=== PATIENT | male | born 1960 | race Caucasian/White ===

== ENCOUNTER → 2017-09-24 | Outpatient (CLI) | payer BC ==
[2017-09-24 08:32] LABS: Basophils % (A) 1 %; Eosinophils # (A) 0.2 k/uL (0-0.7); Eosinophils % (A) 3 %; HCT 45.3 % (39.0-53.0); HGB 14.4 gm/dL (13.0-17.5); Lymphocytes # (A) 1.6 k/uL (1.0-4.8); Lymphocytes % (A) 27 %; MCH 28.8 pg (25.0-35.0); MCHC 31.9 g/dL (31.0-37.0); MCV 90.4 fL (80.0-100.0); Mean Platelet Volume 7.3; Monocytes # (A) 0.5 k/uL (0-1.0); Monocytes % (A) 8 %; Neutrophils # (A) 3.6 k/uL (1.3-7.7); Neutrophils % (A) 60 %; Platelet Count 283 k/uL (150-450); RBC 5.01 m/uL (4.30-5.90); RDW 13.9 % (11.5-15.5)
[2017-09-24 09:03] LABS: ALT 36 U/L (21-72); AST 23 U/L (17-59); Albumin 3.8 g/dL (3.5-5.0); Alkaline Phosphatase 91 U/L (38-126); Anion Gap 11 mmol/L; Blood Urea Nitrogen 17 mg/dL (9-20); Calcium 9.5 mg/dL (8.4-10.2); Carbon Dioxide 29 mmol/L (22-30); Chloride 103 mmol/L (98-107); Cholesterol 219 mg/dL (<200); Glucose 106 mg/dL (74-99); HDL Cholesterol 52 mg/dL (40-60); LDL Cholesterol,Calculated 150 mg/dL (0-99); Potassium 5.3 mmol/L (3.5-5.1); Sodium 143 mmol/L (137-145); Total Bilirubin 0.7 mg/dL (0.2-1.3); Total Protein 6.6 g/dL (6.3-8.2); Triglycerides 85 mg/dL (<150); Uric Acid 5.2 mg/dL (3.5-8.5)
== END | disposition home or self-care (01) ==
LOC: LABWHC1 08:02
PROVIDERS: ATTEND Family Medicine
DX: Z00.01 Encounter for general adult medical examination with abnormal findings (principal); K90.9 Intestinal malabsorption, unspecified; M10.9 Gout, unspecified; I10 Essential (primary) hypertension
CPT/HCPCS: 36415; 80053; 80061; 82306; 84550; 85025

== ENCOUNTER → 2018-05-14 | Outpatient (CLI) | payer BC ==
[2018-05-14 16:30] VITALS: BP 131/80; PULSE 71; RESP 16; TEMP 97.9
[2018-05-14 17:03] VITALS: BMI 42.3
--- NOTE | 2018-05-14 17:17 | P.PN ---
Subjective Progress Note Date: 05/14/18 DATE OF SERVICE: 05/14/2018 CHIEF COMPLAINT: Follow-up gastric bypass. HISTORY OF PRESENT ILLNESS: Vlad Ronquillo is a 57-year-old gentleman who is status post Kris-en-Y gastric [place] [address] Dahl. He is 5 years out. He has regained 60 pounds in 3 years. He is back on blood pressure medications. He had done well the first 2 years. He works at nights. 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 No reports of abdominal pain. He cannot eat brussel sprouts and stir james vegetable. He has history of low testosterone where his levels are within normal limits. His protein intake is over 75 grams daily. He eats fruit daily. His heaviest weight was 391 pounds for his 5 foot frame. His ideal body weight is 178 pounds. Today he comes in weighing 312 pounds from 258 pounds, 2 years ago. He has maintained 79 pound weight loss. His present body mass index has been reduced from 53.9 down to 43.0. PAST MEDICAL HISTORY: 1. Hypotestosteronism. 2. Gastroesophageal reflux disease. 3. Dyslipidemia. 4. Gout. 5. Morbid obesity, BMI 53.9, initial 6. Cleft palate. 7. Obstructive sleep apnea. 8. Tinnitus. PAST SURGICAL HISTORY: 1. Cleft lip palate repair. 2. Sinus surgery. 3. Splenectomy. 4. Partial gastrectomy. 5. Partial liver resection. 6. Antrectomy. 7. Circumcision. 8. Cystoscopy. 9. Nephrolithotripsy. 10. Rotator cuff repair. 11. Biceps tendon repair August 2012. 12. Kris-en-Y gastric bypass. 13. Upper endoscopy. MEDICATIONS: 1. Vitamin A. 2. Multivitamin. 3. Zestoretic 4. Melatonin ALLERGIES: Denies. SOCIAL HISTORY: Lifelong nontobacco user. FAMILY HISTORY: Pertinent for morbid obesity including premature cardiac . REVIEW OF SYSTEMS: CONSTITUTIONAL: Highest weight of 391 pounds. Body mass index was 53.7. HEENT: Wears glasses. Does have history of tinnitus. RESPIRATORY: History of obstructive sleep apnea, now improved. No reports of recent pneumonia. CARDIOVASCULAR: History of dyslipidemia. No has recurrent hypertension. GI: History of gastroesophageal reflux disease, improved since his weight loss. No reports of diarrhea or constipation. MUSCULOSKELETAL: History of osteoarthritis now improved with weight loss. History of gout. NEURO: No reports of stroke or seizure disorders. PSYCH: No reports of depression or suicidal ideation. HEMATOLOGIC: Denies any easy bruising or bleeding. SKIN: No rash or skin cancer. PHYSICAL EXAM: VITAL SIGNS: 5 foot , 312 pounds. Vital Signs Temp 97.9 F 05/14/18 16:28 Pulse 71 05/14/18 16:28 Resp 16 05/14/18 16:28 BP 131/80 05/14/18 16:28 Pulse Ox GENERAL: Well-developed male in no acute distress. HEENT: No sclerae icterus. Extraocular movements grossly intact. Moist buccal mucosa. NECK: Supple without lymphadenopathy. CHEST: Nonlabored respirations. Equal bilateral excursions. CARDIOVASCULAR: Regular rate and rhythm. 2+ radial pulses. ABDOMEN: Soft, nontender, nondistended. No palpable incisional hernias. MUSCULOSKELETAL: No clubbing, cyanosis, or edema. NEURO: No focal or lateralizing signs. PSYCH: Appropriate affect. Alert and oriented to person, place and time. SKIN: Well perfused. Good skin turgor. ASSESSMENT: 1. Morbid obesity due to excess caloric intake. 2. Body mass index reduced from 53.9 to 43.0 3. Status post Kris-en-Y gastric bypass. 4. Dietary surveillance and counseling. 5. Hypertension. 6. Weight regain following bariatric procedure. PLAN: 1. Dietary food journal advised. 2. Two week protein diet advised. 3. Bariatric labs advised 4. Follow up in 1 month. Laboratory Last Values PT 10.0 sec (9.0-12.0) 05/14/18 17:35 INR 1.0 (<1.2) 05/14/18 17:35 APTT 22.3 sec (22.0-30.0) 05/14/18 17:[address] Glu mg/dL 126 05/14/18 17:35 Hemoglobin A1c 6.0 % (4.0-6.0) 05/14/18 17:35 Phosphorus 3.9 mg/dL (2.4-5.1) 05/14/18 17:35 Magnesium 2.1 mg/dL (1.5-2.4) 05/14/18 17:35 Iron 72 ug/dL (65-175) 05/14/18 17:35 TIBC 325 ug/dL (228-460) 05/14/18 17:35 Iron Saturation 22.15 (15.00-50.00) 05/14/18 17:35 Ferritin 60.0 ng/mL (22.0-322.0) 05/14/18 17:35 Prealbumin 27.0 mg/dL (18.0-42.0) 05/14/18 17:35 Triglycerides 116.0 mg/dL (0.0-149.0) 05/14/18 17:35 Cholesterol 195 mg/dL (0-200) 05/14/18 17:35 LDL Cholesterol, Calc 126.8 mg/dL (0.0-131.0) 05/14/18 17:35 VLDL Cholesterol, Calc 23.20 mg/dL (5.00-40.00) 05/14/18 17:35 HDL Cholesterol 45.0 mg/dL (40.0-60.0) 05/14/18 17:35 Cholesterol/HDL Ratio 4.33 05/14/18 17:35 Vitamin A 52 ug/dL (38-106) 05/14/18 17:35 Vitamin B1 66 ug/L (38-122) 05/14/18 17:35 Vitamin B12 2525.0 pg/mL (200.0-944.0) H 05/14/18 17:35 Folate 19.2 ng/mL 05/14/18 17:35 PTH Intact 48.0 pg/mL (14.0-72.0) 05/14/18 17:35 Copper 1262 ug/L (665-1480) 05/14/18 17:35 Selenium 133 mcg/L (63-160) 05/14/18 17:35 Zinc 76 ug/dL (60-130) 05/14/18 17:35 Objective - Vital Signs Vital signs: Vital Signs Temp 97.9 F 05/14/18 16:28 Pulse 71 05/14/18 16:28 Resp 16 05/14/18 16:28 BP 131/80 05/14/18 16:28 Pulse Ox
[2018-05-14 18:26] LABS: Partial Thromboplastin Time 22.3 sec (22.0-30.0)
[2018-05-15 04:15] LABS: LDL Cholesterol,Calculated 126.8 mg/dL (0.0-131.0); Magnesium 2.1 mg/dL (1.5-2.4); Phosphorus 3.9 mg/dL (2.4-5.1); VLDL Calculation 23.2 mg/dL (5.00-40.00)
[2018-05-15 04:21] LABS: Iron Saturation 22.15 (15.00-50.00)
[2018-05-15 04:56] LABS: Folate, Serum 19.2 ng/mL
[2018-05-16 14:53] LABS: Zinc, Serum 76 ug/dL (60-130)
[2018-05-19 05:42] LABS: Vitamin A 52 ug/dL (38-106)
[2018-05-19 05:58] LABS: Vitamin B1 66 ug/L (38-122)
[2018-05-20 15:59] LABS: Selenium 133 mcg/L (63-160)
== END | disposition home or self-care (01) ==
LOC: BARWHC3 15:50
PROVIDERS: ATTEND Surgery Plastic and Reconstructive Surgery
DX: Z48.815 Encounter for surgical aftercare following surgery on the digestive system (principal); E66.01 Morbid (severe) obesity due to excess calories; I10 Essential (primary) hypertension; K21.9 Gastro-esophageal reflux disease without esophagitis; E78.5 Hyperlipidemia, unspecified; E21.1 Secondary hyperparathyroidism, not elsewhere classified; E89.1 Postprocedural hypoinsulinemia; D50.9 Iron deficiency anemia, unspecified; K90.9 Intestinal malabsorption, unspecified; K76.9 Liver disease, unspecified; N19 Unspecified kidney failure; K50.90 Crohn's disease, unspecified, without complications; Z68.41 Body mass index [BMI] 40.0-44.9, adult; Z71.3 Dietary counseling and surveillance; Z90.89 Acquired absence of other organs; Z98.890 Other specified postprocedural states; Z98.84 Bariatric surgery status
CPT/HCPCS: 36415; 80061; 82525; 82607; 82728; 82746; 83036; 83540; 83550; 83735; 83970; 84100; 84134; 84255; 84425; 84590; 84630; 85610; 85730; 99211

== ENCOUNTER 2019-03-26 16:01 | Observation (INO) | payer BC ==
--- NOTE | 2019-03-26 15:47 | CT ---
EXAMINATION TYPE: CT abdomen pelvis w con DATE OF EXAM: 03/26/2019 COMPARISON: 10/26/2013 INDICATION: RLQ pain DLP: 2699.2 mGycm, Automated exposure control for dose reduction was used. CONTRAST: 100 mL of Isovue 300. Study performed with Oral Contrast TECHNIQUE: Axial images were obtained from above the diaphragm to the pubic rami in the axial plane a t 5 mm thick sections. Reconstructed images are reviewed on the computer in the coronal plane. FINDINGS: Limited CT sections are obtained the lung bases. The lung bases are clear. CT ABDOMEN: Liver: Normal Spleen: What appears rudimentary. Correlate with surgical history. Pancreas: Normal Adrenal glands: The adrenal glands are normal. Gallbladder: Normal Kidneys: No masses are evident. No hydronephrosis is present. No cysts are present. Delayed images were obtained through the kidneys, which remain unremarkable. Aorta: Vascular calcification is within the aorta. Inferior vena cava: Normal. CT PELVIS: Loops of bowel within the abdomen and pelvis are normal. There are loops of bowel which are incom pletely distended or lack oral contrast limiting their evaluation. Appendix: There is an appendicolith near the origin of the appendix. The appendix is dilated and has mild periappendiceal inflammatory change. Appendix diameter is 1.5 cm, Normal less than 0.7 cm. Find ings are compatible with acute appendicitis. Report was called to the referring. The time of interpre tation. Urinary bladder: Normal. Genitourinary structures: Prostate is prominent. Osseous structures: No suspicious lytic or sclerotic lesions. IMPRESSIONS: 1. Findings compatible with acute appendicitis.
[2019-03-26] MEDS ORDERED: ONDANSETRON 4 MG/2 ML VIAL IVP STA (16:23)
[2019-03-26] MEDS ORDERED: MORPHINE SULFATE 4 MG/ML SYRINGE IV STA (16:23)
[2019-03-26] MEDS ORDERED: SODIUM CHLORIDE 0.9% 1,000 ML IV STA (16:23)
[2019-03-26] MEDS ORDERED: NALOXONE 0.4 MG/ML 1 ML VIAL IV PRN ×2 (16:33→18:39)
[2019-03-26] MEDS ORDERED: PIPERACILLIN-TAZOBACTAM 3.375 GM in SODIUM CHLORIDE 0.9% 100 ML IVPB STA (16:33)
[2019-03-26] MEDS ORDERED: ONDANSETRON 4 MG/2 ML VIAL IVP PRN (16:33)
[2019-03-26] MEDS ORDERED: MORPHINE SULFATE 4 MG/ML SYRINGE IV PRN (16:33)
[2019-03-26 16:45] LABS: Glucose,Whole Blood 121 mg/dL (75-99)
[2019-03-26 17:13] LABS: ALT 40 U/L (21-72); AST 29 U/L (17-59); African American GFR (CKD) >90 (>60 ml/min/1.73 sqM); Albumin 4.4 g/dL (3.5-5.0); Alkaline Phosphatase 89 U/L (38-126); Anion Gap 12 mmol/L; Blood Urea Nitrogen 12 mg/dL (9-20); Calcium 9.4 mg/dL (8.4-10.2); Carbon Dioxide 26 mmol/L (22-30); Chloride 98 mmol/L (98-107); Glucose 125 mg/dL (74-99); Potassium 4.5 mmol/L (3.5-5.1); Sodium 136 mmol/L (137-145); Total Bilirubin 1.4 mg/dL (0.2-1.3); Total Protein 7.6 g/dL (6.3-8.2)
[2019-03-26] MEDS ORDERED: IV FLUID CONTINUATION 1,000 ML IV ONE (17:18)
[2019-03-26] MEDS ORDERED: HEPARIN SODIUM,PORCINE 5,000 UNIT/ML 1 ML VIAL SQ ONE (17:22)
[2019-03-26 17:23] LABS: Prothrombin Time 10.3 sec (9.0-12.0)
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
[2019-03-26 17:26] LABS: Partial Thromboplastin Time 21.3 sec (22.0-30.0)
[2019-03-26] MEDS ORDERED: ONDANSETRON 4 MG/2 ML VIAL IVP ONE (17:29)
[2019-03-26] MEDS ORDERED: fentaNYL (PF) 50 MCG/ML 2 ML AMP ONE (17:37)
[2019-03-26] MEDS ORDERED: MIDAZOLAM 2 MG/2 ML VIAL ONE (17:37)
[2019-03-26] MEDS ORDERED: LIDOCAINE 1% INJ 10MG/ML (20 ML MDV) ONE (17:37)
[2019-03-26] MEDS ORDERED: PROPOFOL 10 MG/ML 20 ML VIAL IV ONE (17:37)
[2019-03-26] MEDS ORDERED: NEOSTIGMINE 1 MG/ML 10 ML VIAL ONE (17:37)
[2019-03-26] MEDS ORDERED: GLYCOPYRROLATE 0.2 MG/ML 2 ML VIAL ONE (17:37)
[2019-03-26] MEDS ORDERED: ROCURONIUM BROMIDE 10 MG/ML 10 ML VIAL IV ONE (17:37)
[2019-03-26] MEDS ORDERED: SUCCINYLCHOLINE CHLORIDE VIAL 200 MG/10 ML VIAL IV ONE (17:37)
[2019-03-26 17:38] LABS: Basophils # (A) 0.2 k/uL (0-0.2); Basophils % (A) 1 %; Eosinophils # (A) 0.1 k/uL (0-0.7); Eosinophils % (A) 0 %; HCT 43.7 % (39.0-53.0); HGB 14.5 gm/dL (13.0-17.5); Lymphocytes # (A) 1.2 k/uL (1.0-4.8); Lymphocytes % (A) 7 %; MCH 29.9 pg (25.0-35.0); MCHC 33.2 g/dL (31.0-37.0); MCV 90.1 fL (80.0-100.0); Mean Platelet Volume 7.6; Monocytes # (A) 1.6 k/uL (0-1.0); Monocytes % (A) 9 %; Neutrophils % (A) 82 %; Platelet Count 244 k/uL (150-450); RBC 4.85 m/uL (4.30-5.90); RDW 14.1 % (11.5-15.5); WBC 18.2 k/uL (3.8-10.6)
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
[2019-03-26] MEDS ORDERED: BUPIVACAINE (PF) 0.25% 30 ML VIAL SQ ONE ×2 (18:19)
[2019-03-26] MEDS ORDERED: LACTATED RINGERS 1,000 ML IV ONE (18:27)
[2019-03-26] MEDS ORDERED: HYDROcodone/APAP 5-325MG 1 EACH TAB PO PRN (18:39)
--- NOTE | 2019-03-26 18:43 | P.OP ---
Date of Procedure: 03/26/19 Procedure(s) Performed: PREOPERATIVE DIAGNOSIS: Acute appendicitis POSTOPERATIVE DIAGNOSIS: Acute gangrenous appendicitis PROCEDURE: Laparoscopic appendectomy SURGEON: Oleg EBL: Minimal ANESTHESIA: General COMPLICATIONS: None OPERATIVE PROCEDURE: The patient was brought and placed on the operating table in the supine position. The patient was placed under general anesthesia. The abdomen was prepped and draped in the usual sterile fashion. An optical 5 mm trocar was used to enter the abdominal cavity in the left periumbilical location. A small amount of adhesions were seen medial to this which were lysed sharply. An additional 5 mm suprapubic trocar was placed under direct visualization as well as a 12 mm left lower quadrant trocar under direct visualization. The appendix was inspected. It was acutely inflamed with gangrene changes. There is no perforation. The mesoappendix was dissected. The base of the appendix was divided using a linear 45 mm intestinal stapler. The mesentery itself was divided using the LigaSure device. The area was then irrigated. No further purulence or bleeding was seen. The appendix was brought out of the peritoneal cavity through the left lower quadrant trocar site with an Endo Catch bag. The fascia at the 12 mm site was closed using a Alex-Tom 0 Vicryl stitch. The skin at all 3 sites was closed using 4-0 Monocryl sutures. Skin glue was then applied. DISPOSITION: Stable to recovery room
[2019-03-26] MEDS: HYDROmorphone 1 MG/ML 1 ML SYRINGE IVP ONE ×2 (18:58→19:06)
[2019-03-26] MEDS ORDERED: ACETAMINOPHEN IV (For NPO) 1,000 MG in EMPTY BAG 1 BAG IVPB ONE (19:00)
[2019-03-26] MEDS ORDERED: KETOROLAC 30 MG/ML 1 ML VIAL IVP ONE (19:07)
[2019-03-26] MEDS: SODIUM CHLORIDE 0.9% 1,000 ML IV SCH (20:11)
[2019-03-26] MEDS: DOCUSATE 100 MG CAP PO SCH (20:22)
[2019-03-26 22:12] VITALS: RESP 18
[2019-03-26] MEDS: PIPERACILLIN-TAZOBACTAM 3.375 GM in SODIUM CHLORIDE 0.9% 100 ML IVPB SCH (23:37)
[2019-03-26] MEDS: HEPARIN SODIUM,PORCINE 5,000 UNIT/ML 1 ML VIAL SQ SCH (23:37)
[2019-03-27] MEDS: SODIUM CHLORIDE 0.9% 1,000 ML IV SCH (03:47)
[2019-03-27 05:13] LABS: Basophils # (A) 0.1 k/uL (0-0.2); Basophils % (A) 0 %; Eosinophils # (A) 0.1 k/uL (0-0.7); Eosinophils % (A) 1 %; HCT 39.9 % (39.0-53.0); HGB 13.7 gm/dL (13.0-17.5); Lymphocytes # (A) 1.4 k/uL (1.0-4.8); Lymphocytes % (A) 11 %; MCH 30.5 pg (25.0-35.0); MCHC 34.2 g/dL (31.0-37.0); MCV 89.2 fL (80.0-100.0); Mean Platelet Volume 5.9; Monocytes # (A) 0.7 k/uL (0-1.0); Monocytes % (A) 6 %; Neutrophils % (A) 81 %; Platelet Count 289 k/uL (150-450); RBC 4.48 m/uL (4.30-5.90); RDW 13.9 % (11.5-15.5); WBC 12.5 k/uL (3.8-10.6)
[2019-03-27] MEDS: PIPERACILLIN-TAZOBACTAM 3.375 GM in SODIUM CHLORIDE 0.9% 100 ML IVPB SCH (08:07)
[2019-03-27] MEDS: HEPARIN SODIUM,PORCINE 5,000 UNIT/ML 1 ML VIAL SQ SCH (08:07)
[2019-03-27] MEDS: DOCUSATE 100 MG CAP PO SCH (08:07)
[2019-03-27 08:18] VITALS: BP 142/68; PULSE 94; TEMP 99
[2019-03-27] MEDS ORDERED: PANTOPRAZOLE 40 MG/10 ML VIAL IV SCH (09:00)
[2019-03-27] MEDS ORDERED: ACETAMINOPHEN TAB 325 MG TAB PO PRN (10:06)
--- NOTE | 2019-03-27 11:07 | P.DS ---
<Minerva Lay - Last Filed: 03/27/19 11:04> Providers Expected date of discharge: 03/27/19 Hospital Course: 58-year-old male who presented to emergency room with a chief complaint of abdominal pain. Patient was found to have acute appendicitis per CT scan. Patient underwent laparoscopic appendectomy with Dr. Dejesus on 03/26/2019. Patient was found to have gangrenous appendicitis. Patient is doing well postoperatively without any immediate complications. Vital signs are stable. Pain controlled on oral medications. He is stable for discharge home today. Please see EMR for further hospital course details. Discharge diagnosis 1. Abdominal pain 2. Acute gangrenous appendicitis Nurse practitioner note has been reviewed by physician. Signing provider agrees with the documented findings, assessment, and plan of care. Patient Condition at Discharge: Stable Plan - Discharge Summary New Discharge Prescriptions: New Hydrocodone/Acetaminophen [[place] 5-325] 1 tab PO Q6HR PRN 3 Days #12 tab PRN Reason: Pain Levofloxacin [Levaquin] 500 mg PO DAILY #5 tab No Action Aspirin 81 mg PO DAILY L.acidoph,Paracasei, B.lactis [Probiotic] 1 cap PO DAILY Glucosam/Jose-Msm1/C/Brian/Bosw [Rnrdxyabrqs-Nfblozlflzm-NVK Tb] 1 tab PO DAILY Zinc 50 mg PO HS Cholecalciferol [Vitamin D3] 5,000 unit PO DAILY Melatonin 10 mg PO HS Vitamin A Acetate [Vitamin A] 10,000 unit SL DAILY Lisinopril-Hctz 20-12.5 mg [Zestoretic 20-12.5] 1 tab PO DAILY Vitamin B Complex 1 cap PO DAILY Meclizine HCl 12.5 mg PO DAILY PRN PRN Reason: Vertigo Cyanocobalamin [Vitamin B-12] 500 mcg PO DAILY Multivitamins, Thera [Multivitamin (formulary)] 1 tab PO DAILY Testosterone Cypionate [Depo-Testosterone] 200 mg IM Q14D Discharge Medication List Aspirin 81 mg PO DAILY 11/25/13 [History] L.acidoph,Paracasei, B.lactis [Probiotic] 1 cap PO DAILY 09/08/15 [History] Cholecalciferol [Vitamin D3] 5,000 unit PO DAILY 05/19/18 [History] Glucosam/Jose-Msm1/C/Brian/Bosw [Rqnrrephuir-Nbppvrhkqss-MNJ Tb] 1 tab PO DAILY 05/19/18 [History] Lisinopril-Hctz 20-12.5 mg [Zestoretic 20-12.5] 1 tab PO DAILY 05/19/18 [History] Melatonin 10 mg PO HS 05/19/18 [History] Vitamin A Acetate [Vitamin A] 10,000 unit SL DAILY 05/19/18 [History] Zinc 50 mg PO HS 05/19/18 [History] Cyanocobalamin [Vitamin B-12] 500 mcg PO DAILY 03/26/19 [History] Meclizine HCl 12.5 mg PO DAILY PRN 03/26/19 [History] Multivitamins, Thera [Multivitamin (formulary)] 1 tab PO DAILY 03/26/19 [History] Testosterone Cypionate [Depo-Testosterone] 200 mg IM Q14D 03/26/19 [History] Vitamin B Complex 1 cap PO DAILY 03/26/19 [History] Hydrocodone/Acetaminophen [[place] 5-325] 1 tab PO Q6HR PRN 3 Days #12 tab 03/27/19 [Rx] Levofloxacin [Levaquin] 500 mg PO DAILY #5 tab 03/27/19 [Rx] Follow up Appointment(s)/Referral(s): Shree Dejesus MD [Medical Doctor] - 04/15/19 2:40 pm Matias Goodman MD [Primary Care Provider] - 1 Week Activity/Diet/Wound Care/Special Instructions: No driving while taking [place] No lifting over 10 pounds You may shower. No soaking or tub baths Very light activity until you are reevaluated at your follow up appointment with your surgeon <Shree Dejesus - Last Filed: 03/27/19 12:17> Providers Date of admission: 03/26/19 16:33 Attending physician: Shree Dejesus Consults: 03/26/19 18:39 Consult Physician Routine Consulting Provider: Severo Sampson Consult Reason/Comments: Medical management Do you want consulting provider notified?: Yes Primary care physician: Matias Goodman - Discharge Diagnosis(es) (1) Acute appendicitis Status: Acute Hospital Course: As above. Patient discharged this morning prior to my arrival. Follow-up one week.
== END 2019-03-27 10:54 ==
LOC: EC 16:01 → 1SOBS 16:33
PROVIDERS: ADMIT Surgery; ATTEND Surgery
DX: K35.891 Other acute appendicitis without perforation, with gangrene (principal); I10 Essential (primary) hypertension; G47.30 Sleep apnea, unspecified; Z99.89 Dependence on other enabling machines and devices; H91.92 Unspecified hearing loss, left ear; Z87.442 Personal history of urinary calculi; Z79.82 Long term (current) use of aspirin; Z79.890 Hormone replacement therapy; Z79.899 Other long term (current) drug therapy; Z98.84 Bariatric surgery status; Z82.49 Family history of ischemic heart disease and other diseases of the circulatory system
CPT/HCPCS: 44970; 99285; 36415; 86900; 86901; 88304; 80053; 83605; 83690; 85025 ×2; 85610; 85730; 86850; 74177; G0378 ×2; J2543 ×2; J2250; J0330; J2270; J1644 ×2; J2710; J2405; J2001; J3010; J1885; J1170; J2704; C9113; Q9967 ×2

== ENCOUNTER → 2020-03-28 | Outpatient (CLI) | payer BC ==
[2020-03-28 17:01] LABS: Basophils % (A) 1 %; Eosinophils # (A) 0.1 k/uL (0-0.7); Eosinophils % (A) 1 %; HCT 51.7 % (39.0-53.0); HGB 16.3 gm/dL (13.0-17.5); Lymphocytes # (A) 2.1 k/uL (1.0-4.8); Lymphocytes % (A) 27 %; MCH 27.9 pg (25.0-35.0); MCHC 31.6 g/dL (31.0-37.0); MCV 88.2 fL (80.0-100.0); Mean Platelet Volume 7.2; Monocytes # (A) 0.7 k/uL (0-1.0); Monocytes % (A) 9 %; Neutrophils # (A) 4.7 k/uL (1.3-7.7); Neutrophils % (A) 60 %; Platelet Count 269 k/uL (150-450); RBC 5.86 m/uL (4.30-5.90); RDW 15.3 % (11.5-15.5); WBC 7.7 k/uL (3.8-10.6)
[2020-03-29 00:13] LABS: % Iron Saturation 21.11 (15.00-50.00); African American GFR (CKD) 84.7 (60.0-200.0); Albumin 4.5 g/dL (3.80-4.90); Albumin/Globulin Ratio 1.96 (1.60-3.17); BUN/Creat Ratio 16.36 Ratio (12.00-20.00); C Reactive Protein, High Sens 2.18 mg/L (0.000-3.000); Calcium 9.2 mg/dL (8.7-10.3); Chol/HDL Ratio 3.42; Globulin 2.3 g/dL (1.6-3.3); LDL Cholesterol,Calculated 114.2 mg/dL (0.0-131.0); Magnesium 2.1 mg/dL (1.5-2.4); Non-African American GFR(CKD) 73.1 (60.0-200.0); Potassium 4.4 mmol/L (3.5-5.5); Total Bilirubin 0.9 mg/dL (0.3-1.2); Total Protein 6.8 g/dL (6.2-8.2); VLDL Calculation 11.8 mg/dL (5.00-40.00)
[2020-03-29 03:01] LABS: Folate, Serum 23.2 ng/mL
[2020-03-31 14:40] LABS: Albumin, LC/MS/MS 4.2 g/dL (3.6-5.1); Testosterone, Free, LC/MS/MS 49.1 pg/mL (46.0-224.0)
== END | disposition home or self-care (01) ==
LOC: LABWHC1 16:16
PROVIDERS: ATTEND Family Medicine
DX: Z13.220 Encounter for screening for lipoid disorders (principal); I10 Essential (primary) hypertension; E29.1 Testicular hypofunction; Z94.84 Stem cells transplant status
CPT/HCPCS: 36415; 80053; 80061; 82040; 82306; 82525; 82607; 82728; 82746; 83540; 83550; 83735; 84255; 84270; 84403; 84425; 84590; 84630; 85025; 86141

== ENCOUNTER → 2020-09-21 | Outpatient (CLI) | payer BC ==
[2020-09-21 16:21] VITALS: BP 153/71; PULSE 77; RESP 18; TEMP 98.3; BMI 38.1
--- NOTE | 2020-09-21 16:45 | P.PN ---
Subjective Progress Note Date: 09/21/20 DATE OF SERVICE: 09/21/2020 CHIEF COMPLAINT: Follow-up gastric bypass HISTORY OF PRESENT ILLNESS: Vlad Ronquillo is a 59-year-old gentleman who is status post Kris-en-Y gastric [place] [address] Dahl. He is 8 years out. He reports moderate weight regain where he went from 227 pounds up to 321 pounds in the last 3-4 years. He reports low testosterone level. He is now being treated with testosterone supplement and is now losing weight. He does report gastroesophageal reflux disease. He presents in consultation for management of his gastric bypass. His highest weight was 391 pounds for his 5 foot frame. His ideal body weight is 178 pounds. Today he comes in weighing 280 pounds from 312 pounds, 3 years ago. His lifetime weight loss is reduced from 164 pounds down to 111 pounds. His lifetime percent excess weight loss is 52%. His present body mass index has been reduced from 53.9 down to 38.6. PAST MEDICAL HISTORY: 1. Hypotestosteronism. 2. Gastroesophageal reflux disease. 3. Dyslipidemia. 4. Gout. 5. Morbid obesity, BMI 53.9, initial 6. Cleft palate. 7. Obstructive sleep apnea. 8. Tinnitus. PAST SURGICAL HISTORY: 1. Cleft lip palate repair. 2. Sinus surgery. 3. Splenectomy. 4. Partial gastrectomy. 5. Partial liver resection. 6. Antrectomy. 7. Circumcision. 8. Cystoscopy. 9. Nephrolithotripsy. 10. Rotator cuff repair. 11. Biceps tendon repair August 2012. 12. Kris-en-Y gastric bypass. 13. Upper endoscopy. MEDICATIONS: Home Medications Medication Instructions Recorded Confirmed Aspirin 81 mg PO DAILY 11/25/13 10/20/20 L.acidoph,Paracasei, B.lactis 1 cap PO DAILY 09/08/15 10/20/20 [Probiotic] Cholecalciferol [Vitamin D3] 4,000 unit PO DAILY 05/19/18 10/20/20 Glucosam/Jose-Msm1/C/Brian/Bosw 1 tab PO DAILY 05/19/18 10/20/20 [Wkdarrpkrzl-Gponddtxyqo-HEI Tb] Lisinopril-Hctz 20-12.5 mg 1 tab PO DAILY 05/19/18 10/20/20 [Zestoretic 20-12.5] Melatonin 10 mg PO HS 05/19/18 10/20/20 Zinc 50 mg PO HS 05/19/18 10/20/20 Cyanocobalamin [Vitamin B-12] 500 mcg PO DAILY 03/26/19 10/20/20 Testosterone Cypionate 150 mg IM Q14D 03/26/19 10/20/20 [Depo-Testosterone] Vitamin B Complex 1 cap PO DAILY 03/26/19 10/20/20 Krill Oil 500 mg PO DAILY 09/21/20 10/20/20 Magnesium Citrate 250 mg PO DAILY 09/21/20 10/20/20 Mv-Min/Folic/Vit K/Lut/Vmfx996 1 each PO DAILY 09/21/20 10/20/20 [Alive Women's 50 Plus Tablet] Naproxen Sodium [Aleve] 220 mg PO DAILY 09/21/20 10/20/20 Turmeric Root Extract [Turmeric] 500 mg PO DAILY 09/21/20 10/20/20 ALLERGIES: Denies. SOCIAL HISTORY: Lifelong nontobacco user. FAMILY HISTORY: Pertinent for morbid obesity including premature cardiac . REVIEW OF SYSTEMS: CONSTITUTIONAL: Highest weight of 391 pounds. Body mass index was 53.9. [place] body weight for height 5 foot 11.5 is 178 pounds. HEENT: Wears glasses. Does have history of tinnitus. RESPIRATORY: History of obstructive sleep apnea. No reports of recent pneumonia. CARDIOVASCULAR: History of dyslipidemia. Has hypertensive heart disease. GI: History of gastroesophageal reflux disease, improved since his weight loss. No reports of diarrhea or constipation. MUSCULOSKELETAL: History of osteoarthritis now improved with weight loss. History of gout. NEURO: No reports of stroke or seizure disorders. PSYCH: No reports of depression or suicidal ideation. HEMATOLOGIC: Denies any easy bruising or bleeding. SKIN: No rash or skin cancer. ENDOCRINE: Denies diabetes. Denies hypothyroidism. Has a low testosterone level. PHYSICAL EXAM: VITAL SIGNS: 5 foot , 312 pounds. Vital Signs Temp 98.3 F 09/21/20 16:11 Pulse 77 09/21/20 16:11 Resp 18 09/21/20 16:11 BP 153/71 09/21/20 16:11 Pulse Ox GENERAL: Well-developed male in no acute distress. HEENT: No sclerae icterus. Extraocular movements grossly intact. Moist buccal mucosa. NECK: Supple without lymphadenopathy. CHEST: Nonlabored respirations. Equal bilateral excursions. CARDIOVASCULAR: Regular rate and rhythm. 2+ radial pulses. ABDOMEN: Soft, nontender, nondistended. No palpable incisional hernias. MUSCULOSKELETAL: No clubbing, cyanosis, or edema. NEURO: No focal or lateralizing signs. PSYCH: Appropriate affect. Alert and oriented to person, place and time. SKIN: Well perfused. Good skin turgor. ASSESSMENT: 1. Morbid obesity due to excess caloric intake. 2. Body mass index reduced from 53.9 to 38.1 3. Status post Kris-en-Y gastric bypass. 4. Dietary surveillance and counseling. 5. Hypertensive heart disease 6. Weight regain following bariatric procedure. 7. Low testosterone level 8. Gastroesophageal reflux disease PLAN: 1. Recommend bariatric labs. 2. He reports more prominent gastroesophageal reflux disease and recommend esophagram. 3. Also recommend upper endoscopy for new reports of gastroesophageal reflux disease. Objective - Vital Signs Vital signs: Vital Signs Temp 98.3 F 09/21/20 16:11 Pulse 77 09/21/20 16:11 Resp 18 09/21/20 16:11 BP 153/71 09/21/20 16:11 Pulse Ox Intake & Output 09/20/20 09/21/20 09/21/20 18:59 06:59 18:59 Weight 127.459 kg
== END ==
LOC: BARWHC3 16:01
PROVIDERS: ATTEND Surgery Plastic and Reconstructive Surgery
DX: E66.01 Morbid (severe) obesity due to excess calories (principal); I11.9 Hypertensive heart disease without heart failure; K21.9 Gastro-esophageal reflux disease without esophagitis; E29.1 Testicular hypofunction; Z71.3 Dietary counseling and surveillance; Z68.38 Body mass index [BMI] 38.0-38.9, adult; Z98.84 Bariatric surgery status; Z79.899 Other long term (current) drug therapy
CPT/HCPCS: 99211

== ENCOUNTER → 2020-09-23 | Outpatient (CLI) | payer BC ==
[2020-09-23 10:54] LABS: HCT 49.9 % (39.6-50.0); HGB 16.5 g/dL (13.0-17.0); MCH 28.3 pg (27.0-32.0); MCHC 33.1 g/dL (32.0-37.0); MCV 85.4 fL (80.0-97.0); Mean Platelet Volume 10.3 fL (9.5-12.2); Platelet Count 255 X 10*3/uL (140-440); RBC 5.84 X 10*6/uL (4.40-5.60); RDW 17.9 % (11.5-14.5); WBC 6.77 X 10*3/uL (4.50-10.00)
[2020-09-23 14:20] LABS: Ferritin 25.5 ng/mL (22.0-322.0)
[2020-09-23 14:21] LABS: % Iron Saturation 22.97 (15.00-50.00); African American GFR (CKD) 76.3 (60.0-200.0); Albumin 4.4 g/dL (3.80-4.90); Albumin/Globulin Ratio 2.1 (1.60-3.17); Anion Gap 8.4 mmol/L (4.00-12.00); BUN/Creat Ratio 13.33 Ratio (12.00-20.00); Calcium 9.3 mg/dL (8.7-10.3); Carbon Dioxide 29.6 mmol/L (21.6-31.8); Chol/HDL Ratio 4.2; Globulin 2.1 g/dL (1.6-3.3); LDL Cholesterol,Calculated 128.2 mg/dL (0.0-131.0); Magnesium 2.1 mg/dL (1.5-2.4); Non-African American GFR(CKD) 65.8 (60.0-200.0); Phosphorus 2.9 mg/dL (2.4-5.1); Potassium 4.8 mmol/L (3.5-5.5); Total Bilirubin 1.3 mg/dL (0.2-1.2); Total Protein 6.5 g/dL (6.2-8.2); VLDL Calculation 12.8 mg/dL (5.00-40.00)
[2020-09-23 15:20] LABS: Folate, Serum 23.6 ng/mL
[2020-09-23 16:28] LABS: Hemoglobin A1C 5.6 % (4.0-6.0)
[2020-09-24 01:11] LABS: INR 0.96 (0.90-1.11); Partial Thromboplastin Time 25.6 sec (23.5-31.0); Prothrombin Time 10.5 sec (9.9-11.9)
== END | disposition home or self-care (01) ==
LOC: LABWHC1 07:00
PROVIDERS: ATTEND Surgery Plastic and Reconstructive Surgery
DX: E66.01 Morbid (severe) obesity due to excess calories (principal); K90.89 Other intestinal malabsorption; D50.8 Other iron deficiency anemias; E55.9 Vitamin D deficiency, unspecified; N19 Unspecified kidney failure; K50.90 Crohn's disease, unspecified, without complications
CPT/HCPCS: 36415; 80053; 80061; 82306; 82525; 82607; 82728; 82746; 83036; 83540; 83550; 83735; 83970; 84100; 84134; 84255; 84425; 84443; 84590; 84630; 85027; 85610; 85730

== ENCOUNTER 2020-10-24 07:00 | Day surgery (SDC) | payer BC ==
[~2020-10-24 07:00] MED LIST: LACTATED RINGERS 1,000 ML IV SCH; LIDOCAINE 1% (10MG/ML) FOR IV START INTRADERMA PRN
[2020-10-24 07:39] VITALS: RESP 16; TEMP 97.8
--- NOTE | 2020-10-24 07:42 | P.GSHP ---
History of Present Illness H&P Date: 10/24/20 CHIEF COMPLAINT: GERD HISTORY OF PRESENT ILLNESS: The patient is a 59-year-old male who presents reports gastroesophageal reflux disease. Upper endoscopy was offered for further evaluation and management. PAST MEDICAL HISTORY: Please see list. PAST SURGICAL HISTORY: Please see list. MEDICATIONS: Please see list. ALLERGIES: Please see list. SOCIAL HISTORY: No illicit drug use FAMILY HISTORY: No reports of Crohn disease or ulcerative colitis. REVIEW OF ORGAN SYSTEMS: CONSTITUTIONAL: No reports of fevers or chills. GI: Denies any blood in stools or constipation. PHYSICAL EXAM: VITAL SIGNS: Stable GENERAL: Well-developed and pleasant in no acute distress. HEENT: No scleral icterus. Extraocular movements grossly intact. Moist buccal mucosa. NECK: Supple without lymphadenopathy. CHEST: Unlabored respirations. Equal bilateral excursions. CARDIOVASCULAR: Regular rate and rhythm. Distal 2+ pulses. ABDOMEN: Soft, nondistended. MUSCULOSKELETAL: No clubbing, cyanosis, or edema. ASSESSMENT: 1. Gastroesophageal reflux disease PLAN: 1. Recommend proceeding with an upper endoscopy Past Medical History Past Medical History: Hypertension Additional Past Medical History / Comment(s): Ringing in Lt ear some loss of hearing, liver injury in 1979. Mederna COVID vaccine #1 - Jul 2020, #02 Aug 2020. History of Any Multi-Drug Resistant Organisms: None Reported Past Surgical History: Bariatric Surgery, Orthopedic Surgery Additional Past Surgical History / Comment(s): Cleft Pallet Repair, Sinus Surgery. Spleen, part of stomach, liver and intestines removed. Circumcision and Cystoscopy had done also. Kidney stones removed x3. Rotator cuff and bicep tendon clipped August 2012, RYGB 06/09/2013. 8 inch piece of wood in left abdomen removed during childhood. carpal tunnel sx 1995. EGD Past Anesthesia/Blood Transfusion Reactions: No Reported Reaction Smoking Status: Never smoker - Past Family History Father Family Medical History: Myocardial Infarction (MT) Additional Family Medical History / Comment(s): [place] in the 1960's, from aneurism in his abd. Medications and Allergies Home Medications Medication Instructions Recorded Confirmed Type Aspirin 81 mg PO DAILY 11/25/13 10/20/20 History L.acidoph,Paracasei, B.lactis 1 cap PO DAILY 09/08/15 10/20/20 History [Probiotic] Cholecalciferol [Vitamin D3] 4,000 unit PO DAILY 05/19/18 10/20/20 History Glucosam/Jose-Msm1/C/Brian/Bosw 1 tab PO DAILY 05/19/18 10/20/20 History [Qzhjggjhqcw-Ygzgmyoquzy-WJA Tb] Lisinopril-Hctz 20-12.5 mg 1 tab PO DAILY 05/19/18 10/24/20 History [Zestoretic 20-12.5] Melatonin 10 mg PO HS 05/19/18 10/20/20 History Zinc 50 mg PO HS 05/19/18 10/20/20 History Cyanocobalamin [Vitamin B-12] 500 mcg PO DAILY 03/26/19 10/20/20 History Testosterone Cypionate 150 mg IM Q14D 03/26/19 10/20/20 History [Depo-Testosterone] Vitamin B Complex 1 cap PO DAILY 03/26/19 10/20/20 History Krill Oil 500 mg PO DAILY 09/21/20 10/20/20 History Magnesium Citrate 250 mg PO DAILY 09/21/20 10/20/20 History Mv-Min/Folic/Vit K/Lut/Jttc804 1 each PO DAILY 09/21/20 10/20/20 History [Alive Women's 50 Plus Tablet] Naproxen Sodium [Aleve] 220 mg PO DAILY 09/21/20 10/20/20 History Turmeric Root Extract [Turmeric] 500 mg PO DAILY 09/21/20 10/20/20 History Allergies Allergy/AdvReac Type Severity Reaction Status Date / Time No Known Allergies Allergy Verified 10/24/20 07:29 Surgical - Exam Vital Signs Temp Pulse Resp BP Pulse Ox 97.8 F 66 16 140/67 96 10/24/20 07:37 10/24/20 07:37 10/24/20 07:37 10/24/20 07:37 10/24/20 07:37
[2020-10-24] MEDS ORDERED: MIDAZOLAM 2 MG/2 ML VIAL ONE (08:05)
[2020-10-24] MEDS ORDERED: LIDOCAINE 1% INJ 10MG/ML (20 ML MDV) ONE (08:05)
[2020-10-24] MEDS ORDERED: KETAMINE 10 MG/ML 20 ML VIAL ONE (08:05)
[2020-10-24] MEDS ORDERED: fentaNYL (PF) 50 MCG/ML 2 ML AMP ONE (08:05)
[2020-10-24] MEDS ORDERED: PROPOFOL 10 MG/ML 20 ML VIAL IV ONE (08:05)
[2020-10-24 08:41] VITALS: BP 123/60; PULSE 65
--- NOTE | 2020-10-24 08:47 | P.PCN ---
Date of Procedure: 10/24/20 Description of Procedure: PREOPERATIVE DIAGNOSIS: Dysphagia. Gastroesophageal reflux disease POSTOPERATIVE DIAGNOSIS: Dysphagia. 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 SURGEON: Makenna Ramirez MD ANESTHESIA: MAC. INDICATIONS: The patient is a 59-year-old male who presents with a history of dysphagia, gastroesophageal reflux disease. Benefits and risks of the procedure were described. Informed consent was obtained. DESCRIPTION: The patient was brought into the endoscopy suite and laid in the left lateral decubitus position. After a timeout was confirmed, the procedure was initiated. An Olympus gastroscope was passed along the posterior oropharynx down to the distal esophagus where the squamocolumnar junction was unremarkable. The gastric pouch was entered. A gastrojejunal stricture of 15 mm was found as the adult gastroscope was 9.5 mm in size. A [employer] balloon dilator was placed through the scope. Presence of tertiary contractions consistent with presbyesophagus was found. Final insufflation up to 20 mm was performed with a total of 2 minutes to address esophageal distal stricture and anastomosis. The scope was advanced up to 60 cm from the incisors into the Kris limb. The mucosa of the gastrojejunal anastomosis was intact. Chronic gastrojejunal marginal ulcer was encountered. No full-thickness injury was encountered. The GI tract was desufflated. The patient tolerated the procedure well. FINDINGS: Squamocolumnar junction unremarkable at 40 cm. Stricture of approximately 15 mm encountered. Chronic gastrojejunal ulceration encountered. Successful balloon dilatation to 20 mm. Gastric pouch 7 cm. Tertiary contractions consistent with presbyesophagus RECOMMENDATIONS: Discontinue all NSAIDs Plan - Discharge Summary Discharge Rx Participant: No New Discharge Prescriptions: Continue Aspirin 81 mg PO DAILY L.acidoph,Paracasei, B.lactis [Probiotic] 1 cap PO DAILY Glucosam/Jose-Msm1/C/Brian/Bosw [Cbpmbnbghjl-Mpamksjssie-KCG Tb] 1 tab PO DAILY Zinc 50 mg PO HS Cholecalciferol [Vitamin D3 (25 Mcg = 1000 Iu)] 4,000 unit PO DAILY Melatonin 10 mg PO HS Lisinopril-Hctz 20-12.5 mg [Zestoretic 20-12.5] 1 tab PO DAILY Vitamin B Complex 1 cap PO DAILY Cyanocobalamin [Vitamin B-12] 500 mcg PO DAILY Testosterone Cypionate [Depo-Testosterone] 150 mg IM Q14D Krill Oil 500 mg PO DAILY Magnesium Citrate 250 mg PO DAILY Mv-Min/Folic/Vit K/Lut/Wugr208 [Alive Women's 50 Plus Tablet] 1 each PO DAILY Discontinued Naproxen Sodium [Aleve] 220 mg PO DAILY Turmeric Root Extract [Turmeric] 500 mg PO DAILY Discharge Medication List Aspirin 81 mg PO DAILY 11/25/13 [History] L.acidoph,Paracasei, B.lactis [Probiotic] 1 cap PO DAILY 09/08/15 [History] Cholecalciferol [Vitamin D3 (25 Mcg = 1000 Iu)] 4,000 unit PO DAILY 05/19/18 [History] Glucosam/Jose-Msm1/C/Brian/Bosw [Rqcernmqorz-Vajamqigzuh-BXE Tb] 1 tab PO DAILY 05/19/18 [History] Lisinopril-Hctz 20-12.5 mg [Zestoretic 20-12.5] 1 tab PO DAILY 05/19/18 [History] Melatonin 10 mg PO HS 05/19/18 [History] Zinc 50 mg PO HS 05/19/18 [History] Cyanocobalamin [Vitamin B-12] 500 mcg PO DAILY 03/26/19 [History] Testosterone Cypionate [Depo-Testosterone] 150 mg IM Q14D 03/26/19 [History] Vitamin B Complex 1 cap PO DAILY 03/26/19 [History] Krill Oil 500 mg PO DAILY 09/21/20 [History] Magnesium Citrate 250 mg PO DAILY 09/21/20 [History] Mv-Min/Folic/Vit K/Lut/Jrhl152 [Alive Women's 50 Plus Tablet] 1 each PO DAILY 09/21/20 [History] [facility]Ref[facility] [place] [place] [facility] Patient Instructions/Handouts: *Sur[facility] - (Anesthesia) Endoscopy Discharge Instructions, Peptic Ulcer (DC), Upper Endoscopy (DC), Esophageal Dilation (DC) Activity/Diet/Wound Care/Special Instructions: Discontinue Aleve, NSAIDs. Discontinue tumeric. Diet as tolerated Discharge Disposition: HOME SELF-CARE
== END 2020-10-24 09:05 | disposition home or self-care (01) ==
LOC: ORWHC2ENDO 07:00
PROVIDERS: ATTEND Surgery Plastic and Reconstructive Surgery
DX: K95.89 Other complications of other bariatric procedure (principal); K21.9 Gastro-esophageal reflux disease without esophagitis; I10 Essential (primary) hypertension; H93.11 Tinnitus, right ear; Z98.890 Other specified postprocedural states; Z87.442 Personal history of urinary calculi; Z82.49 Family history of ischemic heart disease and other diseases of the circulatory system; Z79.1 Long term (current) use of non-steroidal anti-inflammatories (NSAID); Z79.82 Long term (current) use of aspirin; Z79.890 Hormone replacement therapy; Z79.899 Other long term (current) drug therapy
CPT/HCPCS: 43245; J2250; J2001; J3010; J2704; C1726

== ENCOUNTER → 2020-10-26 | Outpatient (CLI) | payer BC ==
--- NOTE | 2020-10-26 17:53 | P.PN ---
Subjective Progress Note Date: 10/26/20 DATE OF SERVICE: 10/26/2020 CHIEF COMPLAINT: Follow-up gastric bypass HISTORY OF PRESENT ILLNESS: Vlad Ronquillo is a 59-year-old gentleman who is status post Kris-en-Y gastric bypass in 2012. He is 8 years out. He comes in with epigastric and right upper quadrant abdominal pain. She comes in with e levated liver enzymes. He still has his gallbladder. He reports occasional troubles with swallowing. He completed upper endoscopy. He presents today for management of his abdominal pain. His highest weight was 391 pounds for his 5 foot frame. His ideal body weight is 178 pounds. Today he comes in weighing 282 pounds from 280 pounds, 1 month ago. He has gained 2 pounds in 1 month. His lifetime weight loss is reduced from 164 pounds down to 109 pounds. His lifetime percent excess weight loss is 51%. His present body mass index has been reduced from 53.9 down to 38.9. PAST MEDICAL HISTORY: 1. Hypotestosteronism. 2. Gastroesophageal reflux disease. 3. Dyslipidemia. 4. Gout. 5. Morbid obesity, BMI 53.9, initial 6. Cleft palate. 7. Obstructive sleep apnea. 8. Tinnitus. PAST SURGICAL HISTORY: 1. Cleft lip palate repair. 2. Sinus surgery. 3. Splenectomy. 4. Partial gastrectomy. 5. Partial liver resection. 6. Antrectomy. 7. Circumcision. 8. Cystoscopy. 9. Nephrolithotripsy. 10. Rotator cuff repair. 11. Biceps tendon repair August 2012. 12. Kris-en-Y gastric bypass. 13. Upper endoscopy. MEDICATIONS: Home Medications Medication Instructions Recorded Confirmed Aspirin 81 mg PO DAILY 11/25/13 10/20/20 L.acidoph,Paracasei, B.lactis 1 cap PO DAILY 09/08/15 10/20/20 [Probiotic] Cholecalciferol [Vitamin D3] 4,000 unit PO DAILY 05/19/18 10/20/20 Glucosam/Jose-Msm1/C/Brian/Bosw 1 tab PO DAILY 05/19/18 10/20/20 [Sokdtokugkh-Fpcszejxucm-VGI Tb] Lisinopril-Hctz 20-12.5 mg 1 tab PO DAILY 05/19/18 10/20/20 [Zestoretic 20-12.5] Melatonin 10 mg PO HS 05/19/18 10/20/20 Zinc 50 mg PO HS 05/19/18 10/20/20 Cyanocobalamin [Vitamin B-12] 500 mcg PO DAILY 03/26/19 10/20/20 Testosterone Cypionate 150 mg IM Q14D 03/26/19 10/20/20 [Depo-Testosterone] Vitamin B Complex 1 cap PO DAILY 03/26/19 10/20/20 Krill Oil 500 mg PO DAILY 09/21/20 10/20/20 Magnesium Citrate 250 mg PO DAILY 09/21/20 10/20/20 Mv-Min/Folic/Vit K/Lut/Kvpl988 1 each PO DAILY 09/21/20 10/20/20 [Alive Women's 50 Plus Tablet] Naproxen Sodium [Aleve] 220 mg PO DAILY 09/21/20 10/20/20 Turmeric Root Extract [Turmeric] 500 mg PO DAILY 09/21/20 10/20/20 ALLERGIES: Denies. SOCIAL HISTORY: Lifelong nontobacco user. FAMILY HISTORY: Pertinent for morbid obesity including premature cardiac . REVIEW OF SYSTEMS: CONSTITUTIONAL: Highest weight of 391 pounds. Body mass index was 53.9. [place] body weight for height 5 foot 11.5 is 178 pounds. HEENT: Wears glasses. Does have history of tinnitus. RESPIRATORY: History of obstructive sleep apnea. No reports of recent pneumonia. CARDIOVASCULAR: History of dyslipidemia. Has hypertensive heart disease. GI: History of gastroesophageal reflux disease, improved since his weight loss. No reports of diarrhea or constipation. MUSCULOSKELETAL: History of osteoarthritis now improved with weight loss. History of gout. NEURO: No reports of stroke or seizure disorders. PSYCH: No reports of depression or suicidal ideation. HEMATOLOGIC: Denies any easy bruising or bleeding. SKIN: No rash or skin cancer. ENDOCRINE: Denies diabetes. Denies hypothyroidism. Has a low testosterone level. PHYSICAL EXAM: VITAL SIGNS: 5 foot , 292 pounds, BMI 38.9 Vital Signs Temp 97.3 F L 10/26/20 17:23 Pulse 81 10/26/20 17:23 Resp 18 10/26/20 17:23 BP 151/84 10/26/20 17:23 Pulse Ox GENERAL: Well-developed male in no acute distress. HEENT: No sclerae icterus. Extraocular movements grossly intact. Moist buccal mucosa. NECK: Supple without lymphadenopathy. CHEST: Nonlabored respirations. Equal bilateral excursions. CARDIOVASCULAR: Regular rate and rhythm. 2+ radial pulses. ABDOMEN: Soft, nontender, nondistended. No palpable incisional hernias. MUSCULOSKELETAL: No clubbing, cyanosis, or edema. NEURO: No focal or lateralizing signs. PSYCH: Appropriate affect. Alert and oriented to person, place and time. SKIN: Well perfused. Good skin turgor. LABS: LFTs elevated. EGD FINDINGS: Squamocolumnar junction unremarkable at 40 cm. Stricture of approximately 15 mm encountered. Chronic gastrojejunal ulceration encountered. Successful balloon dilatation to 20 mm. Gastric pouch 7 cm. Tertiary contractions consistent with presbyesophagus ASSESSMENT: 1. Morbid obesity due to excess caloric intake. 2. Body mass index reduced from 53.9 to 38.9 3. Status post Kris-en-Y gastric bypass. 4. Dietary surveillance and counseling. 5. Hypertensive heart disease 6. Weight regain following bariatric procedure. 7. Low testosterone level 8. Gastroesophageal reflux disease 9. Right upper quadrant abdominal pain. 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 Presbyesophagus PLAN: 1. He comes in with elevated LFTs. Recommend ultrasound of gallbladder. 2. May benefit from EGD with rigid dilation for presbyesophagus. Objective - Vital Signs Vital signs: Vital Signs Temp 97.3 F L 10/26/20 17:23 Pulse 81 10/26/20 17:23 Resp 18 10/26/20 17:23 BP 151/84 10/26/20 17:23 Pulse Ox Intake & Output 10/25/20 10/26/20 10/26/20 18:59 06:59 18:59 Weight 128.367 kg
== END | disposition home or self-care (01) ==
CPT/HCPCS: 99211

== ENCOUNTER → 2020-11-24 | Outpatient (CLI) | payer BC ==
--- NOTE | 2020-11-24 10:56 | US ---
EXAMINATION TYPE: US gallbladder DATE OF EXAM: 11/24/2020 COMPARISON: CT abdomen and pelvis 03/26/2019 CLINICAL HISTORY: R10.11 RUQ, R94.5 Abn Liver function test. EXAM MEASUREMENTS: Liver Length: 15.1 cm Gallbladder Wall: 0.2 cm CBD: 3 mm. Right Kidney: 14.1 x 5.6 x 5.9 cm Extensive overlying bowel gas, large body habitus Pancreas: Obscured by bowel gas Liver: wnl Gallbladder: limited views, cholelithiasis Evidence for sonographic Turcios's sign: No CBD: wnl Right Kidney: No hydronephrosis or masses seen, measures large IMPRESSION: 1. The pancreas is not visualized due to overlying bowel gas and patient's large body habitus. 2. Limited visualization of the gallbladder due to patient's large body habitus. There are gallstones . No positive Turcios's sign, gallbladder wall thickening or pericholecystic fluid is seen. 3. The right kidney measures 14.1 cm in length, which is slightly enlarged. No hydronephrosis or shad owing renal calculi.
== END | disposition home or self-care (01) ==
LOC: RADUSWWP 07:15
PROVIDERS: ATTEND Surgery Plastic and Reconstructive Surgery
DX: K80.20 Calculus of gallbladder without cholecystitis without obstruction (principal)
CPT/HCPCS: 76705

== ENCOUNTER → 2021-08-01 | Outpatient (CLI) | payer BC ==
--- NOTE | 2021-08-01 11:39 | CT ---
EXAMINATION TYPE: CT angio abdomen DATE OF EXAM: 08/01/2021 COMPARISON: 03/26/2021 HISTORY: Abn CTA chest, thoracic aneurysm, family history of dissection CT DLP: 1655.2 mGycm CONTRAST: CTA abdominal aorta with 3-D reconstruction is performed and without and with IV Contrast, patient in jected with 100 mL of Isovue 370. Contrast CTA of the abdominal aorta was performed from the lung bases through the base of the pelvis. 3-D reconstruction imaging obtained at a separate workstation. CONTRAST CT ABDOMEN ABDOMINAL AORTA: No evidence for abdominal aortic aneurysm. No dissection. Iliac vessels are symmet balaji and patent. LIVER/GB- No significant abnormality is seen. PANCREAS- No significant abnormality is seen. SPLEEN- No significant abnormality is seen. ADRENALS- No significant abnormality is seen. KIDNEYS/BLADDER- No significant abnormality is seen. BOWEL- No Significant abnormality GENITAL ORGANS: No gross abnormality seen. LYMPH NODES- No greater than 1cm abdominal or pelvic lymph nodes areappreciated. OSSEOUS STRUCTURES- No significant abnormality is seen. OTHER- No significant abnormality is seen. IMPRESSION- No evidence for abdominal aortic aneurysm.
== END | disposition home or self-care (01) ==
LOC: RADCTMAIN 10:34
PROVIDERS: ATTEND Family Medicine
DX: I71.2 Thoracic aortic aneurysm, without rupture (principal)
CPT/HCPCS: 74175; Q9967

== ENCOUNTER → 2021-08-09 | Outpatient (CLI) | payer BC ==
[2021-08-09 13:43] VITALS: BP 124/85; PULSE 80; TEMP 98; BMI 38.9
--- NOTE | 2021-08-09 14:13 | P.HPBAR ---
Bariatric H&P - History & Physicial H&P Date: 08/09/21 History & Physicial: Visit/CC: bypass follow up Patient initial contact: Initial weight: 176.901 kg Initial weight in pounds: 390.00 Height: 6 ft Initial BMI: 52.9 Last weight: Current weight: 130.181 kg Current weight in pounds: 287.00 Current BMI: 38.9 [place] body weight (based on NIH guidelines): 80.739 kg Excess body weight loss: 48.5% The patient is a 60 year-old M who presents for Bariatric Assessment. DATE OF SERVICE: 08/09/2021 CHIEF COMPLAINT: Follow-up gastric bypass HISTORY OF PRESENT ILLNESS: Vlad Ronquillo is a 59-year-old gentleman who is status post Kris-en-Y gastric bypass in 2012. He is 9 years out. He comes in with chest pain which is new. He has a new aneurysm of the thoracic aorta. He comes in for new atypical chest pain. He takes multiple vitamins. He sees Dr. Goodman. 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 He has troubles with swallowing. He has hoarse voice. His highest weight was 391 pounds for his 5 foot frame. His ideal body weight is 178 pounds. Today he comes in weighing 286 pounds from 282 pounds, 10 months ago. He has gained 4 pounds in 10 months. His lifetime weight loss is r educed from 164 pounds down to 105 pounds. His lifetime percent excess weight loss is 49%. His present body mass index has been reduced from 53.9 down to 38.9. PAST MEDICAL HISTORY: 1. Hypotestosteronism. 2. Gastroesophageal reflux disease. 3. Dyslipidemia. 4. Gout. 5. Morbid obesity, BMI 53.9, initial 6. Cleft palate. 7. Obstructive sleep apnea. 8. Tinnitus. PAST SURGICAL HISTORY: 1. Cleft lip palate repair. 2. Sinus surgery. 3. Splenectomy. 4. Partial gastrectomy. 5. Partial liver resection. 6. Antrectomy. 7. Circumcision. 8. Cystoscopy. 9. Nephrolithotripsy. 10. Rotator cuff repair. 11. Biceps tendon repair August 2012. 12. Kris-en-Y gastric bypass. 13. Upper endoscopy. MEDICATIONS: Home Medications Medication Instructions Recorded Confirmed L.acidoph,Paracasei, B.lactis 1 cap PO DAILY 09/08/15 09/04/21 [Probiotic] Cholecalciferol [Vitamin D3 (25 1,000 unit PO DAILY 05/19/18 09/04/21 Mcg = 1000 Iu)] Glucosam/Jose-Msm1/C/Brian/Bosw 1 tab PO BID 05/19/18 09/04/21 [Kdpimuegkxk-Vzcnmpkusvd-YFD Tb] Lisinopril-Hctz 20-12.5 mg 1 tab PO QAM 05/19/18 09/04/21 [Zestoretic 20-12.5] Melatonin 10 mg PO HS PRN 05/19/18 09/04/21 Zinc 50 mg PO BID 05/19/18 09/04/21 Cyanocobalamin [Vitamin B-12] 500 mcg PO DAILY 03/26/19 09/04/21 Testosterone Cypionate 150 mg IM Q14D 03/26/19 09/04/21 [Depo-Testosterone] Mv-Min/Folic/Vit K/Lut/Cpbj860 1 tab PO DAILY 09/21/20 09/04/21 [Alive Women's 50 Plus Tablet] Magnesium 500 mg PO BID 07/24/21 09/04/21 Super B Complex 1 tab PO BID 07/24/21 09/04/21 amLODIPine [Norvasc] 10 mg PO QAM 07/24/21 09/04/21 Omeprazole 20 mg PO BID 08/22/21 09/04/21 Rosuvastatin [Crestor] 40 mg PO DAILY 08/22/21 09/04/21 Previous Rx's Medication Instructions Recorded Acetaminophen Tab [Tylenol Tab] 1,000 mg PO Q6HR PRN #30 tablet 09/04/21 Amoxic-Pot Clav 875-125Mg 1 tab PO BID #10 tab 09/04/21 [Augmentin 875-125] Simethicone [Gas-X] 125 mg PO AC-TID PRN #20 capsule 09/04/21 Amoxic-Pot Clav 875-125Mg 1 each PO Q12HR #10 tablet 09/06/21 [Augmentin Xr 875-125] Loratadine-Pseudoeph 5-120 mg 1 each PO Q12HR #20 tab 09/06/21 [Claritin-D 12 HR] ALLERGIES: Denies. SOCIAL HISTORY: Lifelong nontobacco user. FAMILY HISTORY: Pertinent for morbid obesity including premature cardiac . REVIEW OF SYSTEMS: CONSTITUTIONAL: Highest weight of 391 pounds. Body mass index was 53.9. [place] body weight for height 5 foot 11.5 is 178 pounds. HEENT: Wears glasses. Does have history of tinnitus. RESPIRATORY: History of obstructive sleep apnea. No reports of recent pneumonia. CARDIOVASCULAR: History of dyslipidemia. Has hypertensive heart disease. GI: History of gastroesophageal reflux disease, improved since his weight loss. No reports of diarrhea or constipation. MUSCULOSKELETAL: History of osteoarthritis now improved with weight loss. History of gout. NEURO: No reports of stroke or seizure disorders. PSYCH: No reports of depression or suicidal ideation. HEMATOLOGIC: Denies any easy bruising or bleeding. SKIN: No rash or skin cancer. ENDOCRINE: Denies diabetes. Denies hypothyroidism. Has a low testosterone l evel. PHYSICAL EXAM: VITAL SIGNS: 5 foot 11, 286 pounds, BMI 38.9 Vital Signs Temp 98 F 08/09/21 13:41 Pulse 80 08/09/21 13:41 Resp BP 124/85 08/09/21 13:41 Pulse Ox GENERAL: Well-developed male in no acute distress. HEENT: No sclerae icterus. Extraocular movements grossly intact. Moist buccal mucosa. NECK: Supple without lymphadenopathy. CHEST: Nonlabored respirations. Equal bilateral excursions. CARDIOVASCULAR: Regular rate and rhythm. 2+ radial pulses. ABDOMEN: Soft, nontender, nondistended. No palpable incisional hernias. MUSCULOSKELETAL: No clubbing, cyanosis, or edema. NEURO: No focal or lateralizing signs. PSYCH: Appropriate affect. Alert and oriented to person, place and time. SKIN: Well perfused. Good skin turgor. STUDIES: Ultrasound of the gallbladder from October 2020 independently reviewed demonstrates gallstones. ASSESSMENT: 1. Morbid obesity due to excess caloric intake. 2. Body mass index reduced from 53.9 to 38.9 3. Status post Kris-en-Y gastric bypass. 4. Dietary surveillance and counseling. 5. Hypertensive heart disease 6. Weight regain following bariatric procedure. 7. Low testosterone level 8. Gastroesophageal reflux disease 9. Right upper quadrant abdominal pain. 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 Presbyesophagus 12. Dysphagia 13. Gallstones PLAN: 1. He has troubles with swallowing. Recommend upper endoscopy. 2. Cardiac clearance letter pending. 3. Recommend cholecystectomy for which he is elevated risk due to recent chest pain and obesity. 4. Recommend bariatric labs. Past Medical History Past Medical History: Hypertension Additional Past Medical History / Comment(s): Ringing in Lt ear some loss of hearing, liver injury in 1979. Mederna COVID vaccine #1 - Jul 2020, #02 Aug 2020. History of Any Multi-Drug Resistant Organisms: None Reported Past Surgical History: Bariatric Surgery, Orthopedic Surgery Additional Past Surgical History / Comment(s): Cleft Pallet Repair, Sinus Surgery. Spleen, part of stomach, liver and intestines removed. Circumcision and Cystoscopy had done also. Kidney stones removed x3. Rotator cuff and bicep t endon clipped August 2012, RYGB 06/09/2013. 8 inch piece of wood in left abdomen removed during childhood. carpal tunnel sx 1995. EGD Past Anesthesia/Blood Transfusion Reactions: No Reported Reaction Past Psychological History: No Psychological Hx Reported Smoking Status: Never smoker Past Alcohol Use History: Rare Past Drug Use History: None Reported - Past Family History Father Family Medical History: Myocardial Infarction ([place]) Additional Family Medical History / Comment(s): [place] in the 1960's, from aneurism in his abd. Surgical - Exam Vital Signs Temp Pulse BP 98 F 80 124/85 08/09/21 13:41 08/09/21 13:41 08/09/21 13:41 Results - Labs 08/09/21 15:34 08/09/21 15:34 Bariatric Checklist Checklist: Plan: Checklist: EGD: 1. Hiatal hernia: 2. H. Pylori: HgbA1c: Vitamin D: Smoking: Never smoker Primary care physician referral: Dr. Goodman Psychiatry clearance: Cardiology clearance: Sleep study: Diet journal: VTE risk score: VTE risk level: Rehab needs at discharge:
[2021-08-09 23:16] LABS: HGB 18.1 g/dL (13.0-17.0); MCH 31.4 pg (27.0-32.0); MCHC 34.2 g/dL (32.0-37.0); MCV 91.9 fL (80.0-97.0); Mean Platelet Volume 10.2 fL (9.5-12.2); NRBC Per 100 WBC 0 /100 WBCS (0.0-0.0); Platelet Count 252 X 10*3/uL (140-440); RBC 5.77 X 10*6/uL (4.40-5.60); RDW 15.1 % (11.5-14.5); WBC 9.35 X 10*3/uL (4.50-10.00)
[2021-08-09 23:44] LABS: Chol/HDL Ratio 4.27 Ratio; LDL Cholesterol,Calculated 114.1 mg/dL (0.0-131.0)
[2021-08-10 01:51] LABS: INR 0.99 (0.90-1.11); Partial Thromboplastin Time 26.8 sec (23.5-31.0); Prothrombin Time 11.2 sec (9.9-11.9)
[2021-08-10 04:17] LABS: % Iron Saturation 19.61 (15.00-50.00); ALT 43 U/L (10-49); AST 30 U/L (14-35); African American GFR (CKD) 64.5 (60.0-200.0); Albumin 4.9 g/dL (3.8-4.9); Albumin/Globulin Ratio 1.45 (1.60-3.17); Alkaline Phosphatase 65 U/L (41-126); BUN/Creat Ratio 11.61 Ratio (12.00-20.00); Blood Urea Nitrogen 15.9 mg/dL (9.0-27.0); Calcium 9.7 mg/dL (8.7-10.3); Carbon Dioxide 16.4 mmol/L (20.0-27.5); Chloride 100 mmol/L (96-109); Ferritin 60.3 ng/mL (22.0-322.0); Globulin 3.4 g/dL (1.6-3.3); Glucose 91 mg/dL (70-110); Iron 82 ug/dL (65-175); Magnesium 2.4 mg/dL (1.5-2.4); Non-African American GFR(CKD) 55.7 (60.0-200.0); Phosphorus 3.4 mg/dL (2.4-5.1); Potassium 4.7 mmol/L (3.5-5.5); Sodium 141 mmol/L (135-145); Total Iron Binding Capacity 417 ug/dL (228-460); Total Protein 8.2 g/dL (6.2-8.2)
[2021-08-10 04:56] LABS: Folate, Serum >20.00 ng/mL (4.40-31.00)
[2021-08-10 12:10] LABS: Zinc, Serum 85 ug/dL (60-130)
[2021-08-11 06:12] LABS: Vit B1(Thiamine) 92 ug/L (38-122)
[2021-08-12 10:44] LABS: Selenium 168 mcg/L (63-160)
[2021-08-15 06:17] LABS: Vitamin A 68 ug/dL (38-106)
== END ==
LOC: BARWHC3 13:03
PROVIDERS: ATTEND Surgery Plastic and Reconstructive Surgery
DX: E66.01 Morbid (severe) obesity due to excess calories (principal); Z68.38 Body mass index [BMI] 38.0-38.9, adult; Z98.84 Bariatric surgery status; Z71.3 Dietary counseling and surveillance; I11.9 Hypertensive heart disease without heart failure; K21.9 Gastro-esophageal reflux disease without esophagitis; R10.11 Right upper quadrant pain; K28.7 Chronic gastrojejunal ulcer without hemorrhage or perforation; R13.10 Dysphagia, unspecified; K80.80 Other cholelithiasis without obstruction; K22.89 Other specified disease of esophagus; E29.1 Testicular hypofunction; E78.5 Hyperlipidemia, unspecified
CPT/HCPCS: 36415; 80053; 80061; 82306; 82525; 82607; 82728; 82746; 83036; 83540; 83550; 83735; 83970; 84100; 84134; 84255; 84425; 84443; 84590; 84630; 85027; 85610; 85730; 99211

== ENCOUNTER → 2021-08-24 | Outpatient (CLI) | payer BC ==
[2021-08-25 14:35] LABS: Coronavirus SARS CoV-2 Not Detected (Not Detected)
== END | disposition home or self-care (01) ==
LOC: LABPAT 07:04
PROVIDERS: ATTEND Surgery Plastic and Reconstructive Surgery
DX: Z01.812 Encounter for preprocedural laboratory examination (principal); Z20.822 Contact with and (suspected) exposure to COVID-19

== ENCOUNTER 2021-08-28 08:35 | Day surgery (SDC) | payer BC ==
[2021-08-24 11:22] VITALS: BMI 39.3
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
[2021-08-28 09:10] VITALS: TEMP 98.8
[2021-08-28] MEDS ORDERED: PROPOFOL 10 MG/ML 20 ML VIAL IV ONE (09:16)
[2021-08-28] MEDS ORDERED: MIDAZOLAM 2 MG/2 ML VIAL ONE (09:16)
[2021-08-28] MEDS ORDERED: fentaNYL (PF) 50 MCG/ML 2 ML AMP ONE (09:16)
[2021-08-28] MEDS ORDERED: LIDOCAINE 1% INJ 10MG/ML (20 ML MDV) ONE (09:16)
[2021-08-28 09:52] VITALS: BP 113/68; PULSE 64; RESP 17
--- NOTE | 2021-08-28 10:23 | P.PCN ---
Date of Procedure: 08/28/21 Description of Procedure: PREOPERATIVE DIAGNOSIS: Atypical chest pain Personal history of gastrojejunal ulcer s/p Kris-en-y gastric bypass. Morbid obesity. POSTOPERATIVE DIAGNOSIS: Atypical chest pain Personal history of gastrojejunal ulcer s/p Kris-en-y gastric bypass. Morbid obesity. Gastrojejunal stricture OPERATION: Esophagogastrojejunoscopy with balloon dilatation from 18 to 20 mm. SURGEON: Makenna Ramirez MD ANESTHESIA: MAC. INDICATIONS: The patient is a 60-year-old male who presents with a history of Seizure. Benefits and risks of the procedure were described. Informed consent was obtained. DESCRIPTION: The patient was brought into the endoscopy suite and laid in the left lateral de cubitus position. After a timeout was confirmed, the procedure was initiated. An Olympus gastroscope was passed along the posterior oropharynx down to the distal esophagus where the squamocolumnar junction was unremarkable. The gastric pouch was entered. A gastrojejunal stricture of 18 mm was found as the adult gastroscope was 9.5 mm in size. A [employer] balloon dilator was placed through the scope. Final insufflation up to 20 mm was performed with a total of 2 minutes. The scope was advanced up to 60 cm from the incisors into the Kris limb. The mucosa of the gastrojejunal anastomosis was intact. Resolved gastrojejunal marginal ulcer was encountered. No full-thickness injury was encountered. The GI tract was desufflated. The patient tolerated the procedure well. FINDINGS: Squamocolumnar junction unremarkable at 42 cm. Stricture of approximately 18 mm encountered. Resolved gastrojejunal ulceration. Successful balloon dilatation to 20 mm. Gastric pouch 8 cm. RECOMMENDATIONS: Continue omeprazole Plan - Discharge Summary Discharge Rx Participant: No New Discharge Prescriptions: Continue L.acidoph,Paracasei, B.lactis [Probiotic] 1 cap PO DAILY Glucosam/Jose-Msm1/C/Brian/Bosw [Zntpfkbyquv-Bhrzagftepu-RJJ Tb] 1 tab PO BID Zinc 50 mg PO BID Cholecalciferol [Vitamin D3 (25 Mcg = 1000 Iu)] 1,000 unit PO DAILY Melatonin 10 mg PO HS PRN PRN Reason: sleep Lisinopril-Hctz 20-12.5 mg [Zestoretic 20-12.5] 1 tab PO QAM Cyanocobalamin [Vitamin B-12] 500 mcg PO DAILY Testosterone Cypionate [Depo-Testosterone] 150 mg IM Q14D Magnesium 500 mg PO BID Super B Complex 1 tab PO BID amLODIPine [Norvasc] 10 mg PO QAM Mv-Min/Folic/Vit K/Lut/Fvqi591 [Alive Women's 50 Plus Tablet] 1 tab PO DAILY Omeprazole 20 mg PO BID Rosuvastatin [Crestor] 40 mg PO DAILY Discharge Medication List L.acidoph,Paracasei, B.lactis [Probiotic] 1 cap PO DAILY 09/08/15 [History] Cholecalciferol [Vitamin D3 (25 Mcg = 1000 Iu)] 1,000 unit PO DAILY 05/19/18 [History] Glucosam/Jose-Msm1/C/Brian/Bosw [Ddhwocfsvox-Ugpczdbncam-UDS Tb] 1 tab PO BID 05/19/18 [History] Lisinopril-Hctz 20-12.5 mg [Zestoretic 20-12.5] 1 tab PO QAM 05/19/18 [History] Melatonin 10 mg PO HS PRN 05/19/18 [History] Zinc 50 mg PO BID 05/19/18 [History] Cyanocobalamin [Vitamin B-12] 500 mcg PO DAILY 03/26/19 [History] Testosterone Cypionate [Depo-Testosterone] 150 mg IM Q14D 03/26/19 [History] Mv-Min/Folic/Vit K/Lut/Jccn076 [Alive Women's 50 Plus Tablet] 1 tab PO DAILY 09/21/20 [History] Magnesium 500 mg PO BID 07/24/21 [History] Super B Complex 1 tab PO BID 07/24/21 [History] amLODIPine [Norvasc] 10 mg PO QAM 07/24/21 [History] Omeprazole 20 mg PO BID 08/22/21 [History] Rosuvastatin [Crestor] 40 mg PO DAILY 08/22/21 [History] Follow [facility]ment[facility]Ref[facility] [place] [facility] Patient Instructions/Handouts: Esophageal Dilation (DC) Discharge Disposition: HOME SELF-CARE
== END 2021-08-28 10:26 | disposition home or self-care (01) ==
LOC: ORWHC2ENDO 08:35
PROVIDERS: ATTEND Surgery Plastic and Reconstructive Surgery
DX: R07.89 Other chest pain (principal); K21.9 Gastro-esophageal reflux disease without esophagitis; I10 Essential (primary) hypertension; E78.5 Hyperlipidemia, unspecified; Z87.442 Personal history of urinary calculi
CPT/HCPCS: 43249; J2250; J2001; J3010; J2704; C1726

== ENCOUNTER 2021-09-04 07:46 | Day surgery (SDC) | payer BC ==
[2021-08-24 12:56] VITALS: BMI 39.3
[~2021-09-04 07:46] MED LIST changes: -LACTATED RINGERS 1,000 ML IV SCH; -LIDOCAINE 1% (10MG/ML) FOR IV START INTRADERMA PRN; +ceFAZolin 3 GM in SODIUM CHLORIDE 0.9% 100 ML IVPB PRN
[2021-09-04] MEDS ORDERED: INDOCYANINE GREEN 25 MG VIAL IV STA (07:47)
[2021-09-04] MEDS ORDERED: GABAPENTIN 300 MG CAP PO PRN (07:47)
[2021-09-04] MEDS ORDERED: HEPARIN SODIUM,PORCINE/PF 5,000 UNIT/0.5 ML SYRINGE SQ PRN (07:47)
[2021-09-04] MEDS ORDERED: TAMSULOSIN 0.4 MG CAP.ER.24H PO STA (07:47)
[2021-09-04] MEDS ORDERED: ACETAMINOPHEN TAB 500 MG TAB PO PRN (07:47)
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
[2021-09-04] MEDS ORDERED: LACTATED RINGERS 1,000 ML IV SCH (08:03)
[2021-09-04] MEDS ORDERED: DEXAMETHASONE SOD PHOSPHATE 4 MG/ML 1 ML VIAL IV ONE (08:03)
[2021-09-04] MEDS ORDERED: ONDANSETRON 4 MG/2 ML VIAL IVP ONE (08:03)
[2021-09-04 08:51] LABS: Glucose,Whole Blood 95 mg/dL (75-99)
[2021-09-04 08:54] LABS: Basophils # (A) 0.1 k/uL (0-0.2); Basophils % (A) 1 %; Eosinophils # (A) 0.1 k/uL (0-0.7); Eosinophils % (A) 2 %; HCT 54.3 % (39.0-53.0); HGB 18.1 gm/dL (13.0-17.5); Lymphocytes # (A) 1.6 k/uL (1.0-4.8); Lymphocytes % (A) 19 %; MCH 32.2 pg (25.0-35.0); MCHC 33.3 g/dL (31.0-37.0); MCV 96.7 fL (80.0-100.0); Mean Platelet Volume 7.8; Monocytes # (A) 0.8 k/uL (0-1.0); Monocytes % (A) 10 %; Neutrophils # (A) 5.7 k/uL (1.3-7.7); Neutrophils % (A) 67 %; Platelet Count 260 k/uL (150-450); RBC 5.61 m/uL (4.30-5.90); WBC 8.4 k/uL (3.8-10.6)
[2021-09-04] MEDS ORDERED: GLYCOPYRROLATE 0.2 MG/ML 2 ML VIAL ONE (09:18)
[2021-09-04] MEDS ORDERED: fentaNYL (PF) 50 MCG/ML 2 ML AMP ONE (09:18)
[2021-09-04] MEDS ORDERED: MIDAZOLAM 2 MG/2 ML VIAL ONE (09:18)
[2021-09-04] MEDS ORDERED: ePHEDrine 50 MG/ML 1 ML VIAL ONE (09:18)
[2021-09-04] MEDS ORDERED: PROPOFOL 10 MG/ML 20 ML VIAL IV ONE (09:18)
[2021-09-04] MEDS ORDERED: INDOCYANINE GREEN 25 MG VIAL IV ONE (09:18)
[2021-09-04] MEDS ORDERED: NEOSTIGMINE 1 MG/ML 10 ML VIAL ONE (09:18)
[2021-09-04] MEDS ORDERED: SUCCINYLCHOLINE CHLORIDE VIAL 200 MG/10 ML VIAL IV ONE (09:18)
[2021-09-04] MEDS ORDERED: ROCURONIUM 10 MG/ML (5 ML VIAL) IV ONE (09:18)
[2021-09-04] MEDS ORDERED: LIDOCAINE 1% INJ 10MG/ML (20 ML MDV) ONE (09:18)
[2021-09-04 09:27] LABS: ALT 30 U/L (4-49); AST 26 U/L (17-59); African American GFR (CKD) >90 (>60 ml/min/1.73 sqM); Albumin 2.8 g/dL (3.5-5.0); Alkaline Phosphatase 35 U/L (38-126); Anion Gap 9 mmol/L; Blood Urea Nitrogen 14 mg/dL (9-20); Calcium 7.8 mg/dL (8.4-10.2); Carbon Dioxide 20 mmol/L (22-30); Chloride 105 mmol/L (98-107); Glucose 78 mg/dL (74-99); Non-African American GFR(CKD) >90 (>60 ml/min/1.73 sqM); Potassium 4.4 mmol/L (3.5-5.1); Sodium 134 mmol/L (137-145); Total Bilirubin 1.1 mg/dL (0.2-1.3); Total Protein 5.3 g/dL (6.3-8.2)
[2021-09-04] MEDS ORDERED: BUPIVACAIN-EPI 0.25%-1:200,000 30 ML VIAL SQ ONE (09:56)
[2021-09-04] MEDS ORDERED: LACTATED RINGERS 1,000 ML IV ONE (11:34)
[2021-09-04 12:01] VITALS: TEMP 97
[2021-09-04] MEDS ORDERED: KETOROLAC 15 MG/ML 1 ML VIAL IVP ONE (12:13)
--- NOTE | 2021-09-04 12:32 | P.OP ---
Date of Procedure: 09/04/21 Description of Procedure: SURGEON: DULCE MARIA WILCOX MD PREOPERATIVE DIAGNOSES: 1. Atypical chest pain with symptomatic gallstones 2. Morbid obesity due to excess calories, BMI 39.3 3. History of gastric bypass 4. Hypertensive heart disease 5. Hypotestosteronism POSTOPERATIVE DIAGNOSES: 1. Atypical chest pain with symptomatic gallstones 2. Morbid obesity due to excess calories, BMI 39.3 3. History of gastric bypass 4. Hypertensive heart disease 5. Hypotestosteronism 6. Diabetes type 2 7. Severe intra-abdominal adhesions due to prior trauma exploratory laparotomy OPERATION: 1. Robotic-assisted da Taqueria Xi laparoscopic lysis of adhesions over 1.5 hours 2. Robotic-assisted da Taqueria Xi laparoscopic cholecystectomy, multiport with FIREFLY ESTIMATED BLOOD LOSS: 10 mL. SPECIMENS REMOVED: Gallbladder. COMPLICATIONS: None. OPERATIVE FINDINGS: 1. Severe intra-abdominal adhesions involving omentum to abdominal wall including small bowel and colon to the abdominal wall requiring over 1.5 hours of extensive lysis of adhesions 2. Gallbladder surrounded by moderately dense adhesions and identified using indocyanine green INDICATIONS: The patient is a 60-year-old male who presents with recent atypical chest pain with findings of symptomatic gallstones. Robotic assisted laparoscopic approach was described. Benefits and risks of the procedure including but not limited to bleeding, infection, injury to the biliary tree was described. Informed consent was obtained. DESCRIPTION OF PROCEDURE: Patient was brought to the operating room, placed in supine position. After general induction, the abdomen had been prepped and draped in standard sterile fashion. The robotic da Taqueria XI system was primed. After a timeout protocol was performed, the patient had been prepped and draped in standard sterile fashion. The patient was injected with indocyanine green. A 5 mm 0 degrees laparoscopic trocar entry was performed along the left upper quadrant. The abdomen insufflated to 15 mmHg pressure which was tolerated well. Diagnostic laparoscopy demonstrated severe abdominal adhesions of the omentum to the abdominal wall as well as the small bowel adherent to the left upper quadrant and transverse colon of the epigastrium. The right side of the lateral abdominal wall was without moderate adhesions. Next, two 8 mm robotic ports were placed along the right upper abdomen. The camera 8-mm port was maintained along the epigastrium. Another 8 mm port was placed along the left upper abdominal wall after exchanging the 5 mm port. Please note that the ports were placed at least 10 to 15 cm away from the target anatomy of the gallbladder. All trochars were placed under direct visualization. The robot was docked along the left lateral abdomen. The patient was repositioned in reverse Trendelenburg position. Using a grasper for arm 3, a grasper for arm 4, including hook cautery for arm 1, the robotic system was docked and primed as described. Instruments were interchanged by the medical receptionist assistant including hook cautery, vessel sealer, Bovie cautery and clip appliers. I had sat at the console. Initial attention was brought to clearance of the omentum to the abdominal wall involving the epigastrium, left upper quadrant and right upper quadrant. Using combination of blunt dissection including vessel sealer, the mid transverse colon was gently dissected free bluntly without colotomy. Access to the right upper quadrant was performed using vessel sealer. Attention was then brought to the gallbladder which was densely embedded in surrounding adhesions including the duodenum and transverse colon. Additional blunt dissection including d issection with a vessel sealer and minimal cautery was performed. Total lysis of adhesions over 1.5 hours was performed and complexity to the case. Next attention was brought to the infundibulum and cystic structures. The infundibulum and cystic duct were dissected free from surrounding tissues. The cystic duct was isolated. FIREFLY was used to identify the cystic artery and cystic structures. A critical view of safety was obtained. Large PLASTIC clips were used throughout the entire case. Using a clip spring clipper, 2 clips were placed at the junction of the infundibulum and cystic duct. The cystic duct was divided between clips. Next, the cystic artery was similarly clipped and cauterized. Electro-Bovie cautery including vessel sealer was used to remove the gallbladder from the hepatic fossa. The gallbladder was decompressed without any spillage of stones. Hemostasis was checked and found to be adequate. The robot was undocked. I re-scrubbed into the case. Using a 10 mm Endo Catch bag via the epigastric incision, the specimen was removed from the abdominal cavity. The hepatic fossa was dried using sponges. All pneumoperitoneum instruments were evacuated from the abdominal cavity. The incisions were reapproximated using 4-0 Monocryl in an interrupted subcuticular fashion. Fascial defects were less than 8 mm in size. Please note along the trocar sites, local anesthetic was placed as a field block prior to insertion of all instruments. Liquid glue was applied to the skin. At the end of the procedure needle, sponge, and instrument count had been verified correct by the surgical brace maker. The patient was transferred to postanesthesia care unit in stable condition. Intraoperative films were shared with the patient's family. Plan - Discharge Summary Discharge Rx Participant: No New Discharge Prescriptions: New Amoxic-Pot Clav 875-125Mg [Augmentin 875-125] 1 tab PO BID #10 tab Simethicone [Gas-X] 125 mg PO AC-TID PRN #20 capsule PRN Reason: Pain Acetaminophen Tab [Tylenol Tab] 1,000 mg PO Q6HR PRN #30 tablet PRN Reason: Pain Continue L.acidoph,Paracasei, B.lactis [Probiotic] 1 cap PO DAILY Glucosam/Jose-Msm1/C/Brian/Bosw [Cbkodfcqxac-Yquvjhlucbd-NHZ Tb] 1 tab PO BID Zinc 50 mg PO BID Cholecalciferol [Vitamin D3 (25 Mcg = 1000 Iu)] 1,000 unit PO DAILY Melatonin 10 mg PO HS PRN PRN Reason: sleep Lisinopril-Hctz 20-12.5 mg [Zestoretic 20-12.5] 1 tab PO QAM Cyanocobalamin [Vitamin B-12] 500 mcg PO DAILY Testosterone Cypionate [Depo-Testosterone] 150 mg IM Q14D Magnesium 500 mg PO BID Super B Complex 1 tab PO BID amLODIPine [Norvasc] 10 mg PO QAM Mv-Min/Folic/Vit K/Lut/Prho636 [Alive Women's 50 Plus Tablet] 1 tab PO DAILY Omeprazole 20 mg PO BID Rosuvastatin [Crestor] 40 mg PO DAILY Discharge Medication List L.acidoph,Paracasei, B.lactis [Probiotic] 1 cap PO DAILY 09/08/15 [History] Cholecalciferol [Vitamin D3 (25 Mcg = 1000 Iu)] 1,000 unit PO DAILY 05/19/18 [History] Glucosam/Jose-Msm1/C/Brian/Bosw [Iuiqpbpdmxi-Kzusptrkjxt-QVL Tb] 1 tab PO BID [History] Lisinopril-Hctz 20-12.5 mg [Zestoretic 20-12.5] 1 tab PO QAM 05/19/18 [History] Melatonin 10 mg PO HS PRN 05/19/18 [History] Zinc 50 mg PO BID 05/19/18 [History] Cyanocobalamin [Vitamin B-12] 500 mcg PO DAILY 03/26/19 [History] Testosterone Cypionate [Depo-Testosterone] 150 mg IM Q14D 03/26/19 [History] Mv-Min/Folic/Vit K/Lut/Nodq638 [Alive Women's 50 Plus Tablet] 1 tab PO DAILY 0 09/21/20 [History] Magnesium 500 mg PO BID 07/24/21 [History] Super B Complex 1 tab PO BID 07/24/21 [History] amLODIPine [Norvasc] 10 mg PO QAM 07/24/21 [History] Omeprazole 20 mg PO BID 08/22/21 [History] Rosuvastatin [Crestor] 40 mg PO DAILY 08/22/21 [History] Acetaminophen Tab [Tylenol Tab] 1,000 mg PO Q6HR PRN #30 tablet 09/04/21 [Rx] Amoxic-Pot Clav 875-125Mg [Augmentin 875-125] 1 tab PO BID #10 tab 09/04/21 [Rx] Simethicone [Gas-X] 125 mg PO AC-TID PRN #20 capsule 09/04/21 [Rx] Follow up [facility]ment(s[facility]Ref[facility] [place] [facility] [place] [facility] Patient Instructions/Handouts: Laparoscopic Cholecystectomy (DC), Low Fat Diet (ED), *[facility] - Managing Your Pain After Surgery Without Opioids, Lysis of Abdominal Adhesions (DC) Activity/Diet/Wound Care/Special Instructions: Recommend low-fat diet for the next 2 days. No lifting over 10 pounds in 2 weeks until September 18. May shower. No bath tub soaks for two weeks until September 18. Diet as tolerated. Use Tylenol, simethicone and ibuprofen or Aleve scheduled for the next 24-48 hours for best pain relief. Use ice along incisions for today to prevent swelling. Discharge Disposition: HOME SELF-CARE
[2021-09-04] MEDS: HYDROmorphone 0.5 MG/0.5 ML SYRINGE IVP PRN ×2 (12:45→12:51)
[2021-09-04 13:18] VITALS: RESP 18
[2021-09-04 14:15] VITALS: BP 119/63; PULSE 71
== END 2021-09-04 14:42 | disposition home or self-care (01) ==
LOC: OR 07:46
PROVIDERS: ATTEND Surgery Plastic and Reconstructive Surgery
DX: K80.20 Calculus of gallbladder without cholecystitis without obstruction (principal); E66.01 Morbid (severe) obesity due to excess calories; Z68.39 Body mass index [BMI] 39.0-39.9, adult; Z98.84 Bariatric surgery status; E11.9 Type 2 diabetes mellitus without complications; I11.0 Hypertensive heart disease with heart failure; I50.9 Heart failure, unspecified; K66.0 Peritoneal adhesions (postprocedural) (postinfection); I71.9 Aortic aneurysm of unspecified site, without rupture; Z82.49 Family history of ischemic heart disease and other diseases of the circulatory system
CPT/HCPCS: 44180; S2900; 80053; 85025; 88304

== ENCOUNTER → 2021-09-06 | Outpatient (CLI) | payer BC ==
[2021-09-06 13:17] VITALS: BP 145/84; PULSE 92; RESP 16; TEMP 98.4; BMI 39.3
--- NOTE | 2021-09-06 14:16 | P.PN ---
Progress Note - Text Progress Note Date: 09/06/21 To Whom It May Concern: Vlad Ronquillo is under my general surgical care. He underwent major abdominal surgery. He may return to work with exertional activity of 20 pounds limit, 09/11/2021. He will be off exertional restrictions 09/18/2021. Feel free to contact us if questions. Sincerely, Makenna Ramirez MD, FACS
--- NOTE | 2021-09-06 14:17 | P.BASOAP ---
Subjective Progress Note Date: 09/06/21 DATE OF SERVICE: 09/06/2021 CHIEF COMPLAINT: Follow-up gastric bypass HISTORY OF PRESENT ILLNESS: Vlad Ronquillo is a 59-year-old gentleman who is status post Kris-en-Y gastric bypass in 2012. He is 9 years out. He is now status post cholecystectomy, 09/04/2021. He reports of congestion and irritation of the throat from the endotracheal tube. Patient did not get Augmentin. His highest weight was 391 pounds for his 5 foot frame. His ideal body weight is 178 pounds. Today he comes in weighing 289 pounds from 286 pounds, 1 month ago. He has gained 3 pounds in 1 months. His lifetime weight loss is reduced from 164 pounds down to 102 pounds. His lifetime percent excess weight loss is 48%. His present body mass index has been reduced from 54.6 down to 40.4. PHYSICAL EXAM: VITAL SIGNS: 5 foot , 289 pounds, BMI 40.4 Vital Signs Temp 98.4 F 09/06/21 13:15 Pulse 92 09/06/21 13:15 Resp 16 09/06/21 13:15 BP 145/84 09/06/21 13:15 Pulse Ox GENERAL: Well-developed male in no acute distress. HEENT: No sclerae icterus. Extraocular movements grossly intact. Moist buccal mucosa. NECK: Supple without lymphadenopathy. CHEST: Nonlabored respirations. Equal bilateral excursions. CARDIOVASCULAR: Regular rate and rhythm. 2+ radial pulses. ABDOMEN: Incisions well. No infection. MUSCULOSKELETAL: No clubbing, cyanosis, or edema. NEURO: No focal or lateralizing signs. PSYCH: Appropriate affect. Alert and oriented to person, place and time. SKIN: Well perfused. Good skin turgor. ASSESSMENT: 1. Morbid obesity due to excess caloric intake. 2. Body mass index reduced from 53.9 to 39.3 3. Status post Kris-en-Y gastric bypass. 4. Dietary surveillance and counseling. 5. Hypertensive heart disease 6. Weight regain following bariatric procedure. 7. Low testosterone level 8. Gastroesophageal reflux disease 9. Right upper quadrant abdominal pain. 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 Presbyesophagus 12. Dysphagia 13. Gallstones 14. Status post cholecystectomy PLAN: 1. Recommend Augmentin and Claritin. 2. May return to work on 09/11/2021 with weight lifting restrictions until September 18. Objective - Vital Signs Vital signs: Vital Signs Temp 98.4 F 09/06/21 13:15 Pulse 92 09/06/21 13:15 Resp 16 09/06/21 13:15 BP 145/84 09/06/21 13:15 Pulse Ox Intake & Output 09/05/21 09/06/21 09/06/21 18:59 06:59 18:59 Weight 131.542 kg Assessment/Plan Plan: Date: 09/06/21 Initial Weight: 176.901 kg Initial BMI: 52.9 Current Weight: 131.542 kg Current BMI: 39.3 Type of Surgery: Kris-en-Y Gastric Bypass Total Volume in Band: Previous Volume: Volume Removed: Volume Added: Band Size:
== END ==
LOC: BARWHC3 12:48
PROVIDERS: ATTEND Surgery Plastic and Reconstructive Surgery
DX: E66.01 Morbid (severe) obesity due to excess calories (principal); Z71.3 Dietary counseling and surveillance; I11.9 Hypertensive heart disease without heart failure; K21.9 Gastro-esophageal reflux disease without esophagitis; K28.7 Chronic gastrojejunal ulcer without hemorrhage or perforation; K22.89 Other specified disease of esophagus; R13.10 Dysphagia, unspecified; K80.80 Other cholelithiasis without obstruction; E29.1 Testicular hypofunction; Z98.84 Bariatric surgery status; Z68.39 Body mass index [BMI] 39.0-39.9, adult; Z90.49 Acquired absence of other specified parts of digestive tract
CPT/HCPCS: 99211

== ENCOUNTER → 2022-03-21 | Outpatient (CLI) | payer BC ==
--- NOTE | 2022-03-21 08:42 | XR ---
Cervical spine HISTORY: M542, pain, abnormal plain film 4 views of the cervical spine correlated to prior exam 07/07/2013 There is multilevel spondylosis. Loss of disc height is present intervertebral levels. Cervical verte bral bodies show preserved height and bone mineralization. Minimal anterolisthesis grade 1 C4-5, C5-6 . Segmentation defect noted at C2-3 as on prior and is likely congenital. Facet arthropathy changes a re present. C7-T1 not well seen. IMPRESSION: Degenerative disc disease, facet arthropathy, congenital anomaly
--- NOTE | 2022-03-21 08:49 | US ---
EXAMINATION TYPE: US liver DATE OF EXAM: 03/21/2022 COMPARISON: CT & US CLINICAL HISTORY: [id number] ELEVATION OF LEVELS OF LIVER. Abn LFT's, GB removed TECHNIQUE: Multiple sonographic images of the right upper quadrant are obtained. FINDINGS: EXAM MEASUREMENTS: Liver Length: 16.8 cm CBD: 0.4 cm Right Kidney: 13.7 x 5.9 x 5.5 cm MANAGER OF SALES NOTES: Large pt body habitus Pancreas: Obscured by bowel gas Liver: Difficult to penetrate Gallbladder: Surgically absent Evidence for sonographic Turcios's sign: No CBD: wnl Right Kidney: wnl IMPRESSION: There may be underlying hepatic steatosis, hepatocellular disease. Postop change. Limited exam.
--- NOTE | 2022-03-21 08:57 | MR ---
EXAMINATION TYPE: MR cervical spine wo con DATE OF EXAM: 03/21/2022 INDICATION: Patient age:Male; 61 years old; Reason for study: M542;. Dereje upper extremity tingling COMPARISON: Cervical radiograph 03/21/2022. TECHNIQUE: Multi planar, multi sequence imaging was performed utilizing: T1-weighted, T2-weighted, an d turbo inversion recovery imaging of the cervical spine. IV Contrast: None FINDINGS: Alignment: The cervical vertebral bodies have preserved heights. Alignment is within normal limits gi solange patient positioning. Bones: Degeneration changes are seen throughout the spine. Most pronounced at C3-C4 C4-C5 and C5-C6. Cord: The spinal cord is unremarkable with regards to their signal intensity and morphology. Discs: Multilevel disc desiccation is present. C2-C3: No significant disc pathology. The spinal canal is patent. No neural foraminal stenosis. C3-C4: A disc osteophyte complex is present which minimally narrows the ventral subarachnoid space. Bilateral facet and uncovertebral joint arthropathy are present with moderate right and mild left ne ural foraminal stenosis. C4-C5: A disc osteophyte complex is present with moderate to severe spinal canal stenosis. Bilateral facet and uncovertebral joint arthropathy are present with moderate to severe bilateral neural breonna inal stenosis. C5-C6: A disc osteophyte complex is present with moderate to severe spinal canal stenosis. Bilateral facet and uncovertebral joint arthropathy are present with moderate to severe bilateral neural breonna inal stenosis. C6-C7: A disc osteophyte complex is present with mild spinal canal stenosis. Bilateral facet and unc overtebral joint arthropathy are present with moderate to severe right and mild to moderate left neur al foraminal stenosis. C7-T1: No significant disc pathology. The spinal canal is patent. No neural foraminal stenosis. IMPRESSION: Moderate to severe C4-C5 and C5-C6 spinal canal stenosis with associated moderate to severe bilateral neural foraminal stenosis., Additional C6-C7 severe right neural foraminal stenosis.
[2022-03-21 15:34] LABS: Albumin 4.4 g/dL (3.8-4.9); Albumin/Globulin Ratio 1.71 (1.60-3.17); Bilirubin, Conjugated 0.26 mg/dL (0.20-0.40); Bilirubin,Unconjugated 0.76 mg/dL (0.20-1.00); Globulin 2.6 g/dL (1.6-3.3)
== END | disposition home or self-care (01) ==
LOC: RADMRIMAIN 05:58
PROVIDERS: ATTEND Family Medicine
DX: M47.812 Spondylosis without myelopathy or radiculopathy, cervical region (principal); M50.322 Other cervical disc degeneration at C5-C6 level; R74.01 Elevation of levels of liver transaminase levels; M48.02 Spinal stenosis, cervical region
CPT/HCPCS: 72040; 72141; 76705; 80076; 82977

== ENCOUNTER → 2022-07-27 | Outpatient (CLI) | payer BC ==
[2022-07-27 23:01] LABS: Basophils # (A) 0.03 X 10*3/uL (0.00-0.10); Basophils % (A) 0.6 %; Eosinophils # (A) 0.08 X 10*3/uL (0.04-0.35); Eosinophils % (A) 1.5 %; HCT 43.8 % (39.6-50.0); HGB 14.1 g/dL (13.0-17.0); Immature Grans, Automated 0.2 %; Lymphocytes # (A) 1.62 X 10*3/uL (0.90-5.00); Lymphocytes % (A) 30.7 %; MCH 29.7 pg (27.0-32.0); MCHC 32.2 g/dL (32.0-37.0); MCV 92.4 fL (80.0-97.0); Mean Platelet Volume 10.6 fL (9.5-12.2); Monocytes % (A) 13.3 %; NRBC Per 100 WBC 0 /100 WBCS (0.0-0.0); Neutrophils # (A) 2.84 X 10*3/uL (1.80-7.70); Neutrophils % (A) 53.7 %; Platelet Count 214 X 10*3/uL (140-440); RBC 4.74 X 10*6/uL (4.40-5.60); WBC 5.28 X 10*3/uL (4.50-10.00)
[2022-07-27 23:14] LABS: Erythrocyte Sedimentation Rate 14 mm/Hr (0-20)
[2022-07-27 23:41] LABS: C Reactive Protein, High Sens 1.83 mg/L (0.000-3.000)
[2022-07-27 23:52] LABS: % Iron Saturation 30.07 (15.00-50.00); African American GFR (CKD) 88.4 (60.0-200.0); Albumin 4.5 g/dL (3.8-4.9); Albumin/Globulin Ratio 2.03 (1.60-3.17); Anion Gap 11.3 mmol/L (10.00-18.00); BUN/Creat Ratio 10.95 Ratio (12.00-20.00); Blood Urea Nitrogen 11.5 mg/dL (9.0-27.0); Calcium 9.7 mg/dL (8.7-10.3); Carbon Dioxide 28.2 mmol/L (20.0-27.5); Globulin 2.2 g/dL (1.6-3.3); Magnesium 2.3 mg/dL (1.5-2.4); Non-African American GFR(CKD) 76.2 (60.0-200.0); Potassium 4.5 mmol/L (3.5-5.5); Total Bilirubin 0.9 mg/dL (0.30-1.20); Total Protein 6.6 g/dL (6.2-8.2)
== END | disposition home or self-care (01) ==
LOC: LABWHC1 14:21
PROVIDERS: ATTEND Family Medicine
DX: G60.9 Hereditary and idiopathic neuropathy, unspecified (principal); Z98.84 Bariatric surgery status
CPT/HCPCS: 36415; 80053; 82306; 82525; 82607; 82728; 82746; 83540; 83550; 83735; 83921; 84255; 84425; 84590; 84630; 85025; 85652; 86141

== ENCOUNTER → 2022-11-12 | Outpatient (CLI) | payer BC ==
--- NOTE | 2022-11-12 07:44 | MR ---
EXAMINATION TYPE: MR lumbar spine wo con DATE OF EXAM: 11/12/2022 COMPARISON: CT abdomen and pelvis 03/26/2019 HISTORY: NO prior, no injury , low back pain , with numbness to legs and feet and pain and weakness t o right hip and leg TECHNIQUE: Multiplanar, multisequence images of the lumbar spine were acquired without IV contrast. FINDINGS: Lumbar segments are intact. No paraspinal masses are identified. Conus medullaris has a normal appe arance. Minimal grade 1 anterolisthesis of L4 on L5 without evidence of pars defects. L1-L2: No herniation, protrusion or disc bulging. No canal stenosis is present. Foramina are patent bilaterally. L2-L3: No herniation, protrusion or disc bulging. No canal stenosis is present. Foramina are patent bilaterally. L3-L4: Broad-based disc bulge with annular fissure and ligamentum flavum buckling with facet arthropa thy contributing to moderate spinal canal stenosis. Moderate bilateral neuroforaminal stenosis. L4-L5: Minimal grade 1 anterolisthesis with uncovering of the disc. Broad-based disc bulge with ligam entum flavum buckling and facet arthropathy contribute to moderate spinal canal stenosis. Moderate bi lateral neural foraminal stenosis. L5-S1: Broad-based disc bulge without significant central canal stenosis. Bilateral facet arthropathy . Mild bilateral foraminal stenosis. IMPRESSION: 1. No disc herniation. 2. Multilevel degenerative disease of the lower lumbar spine most pronounced at L3-L4 and L4-L5 with moderate central canal stenosis secondary to broad-based disc bulge, facet arthropathy, and ligamentu m flavum buckling. There is bilateral moderate neuroforaminal stenosis at these levels.
== END | disposition home or self-care (01) ==
LOC: RADMRIMAIN 06:34
PROVIDERS: ATTEND Psychiatry & Neurology Neurology
DX: M48.061 Spinal stenosis, lumbar region without neurogenic claudication (principal); M47.26 Other spondylosis with radiculopathy, lumbar region; M99.73 Connective tissue and disc stenosis of intervertebral foramina of lumbar region; M51.16 Intervertebral disc disorders with radiculopathy, lumbar region
CPT/HCPCS: 72148

== ENCOUNTER → 2023-09-24 | Outpatient (CLI) | payer BC ==
[2023-09-24 16:03] VITALS: BP 156/90; PULSE 57; RESP 16; TEMP 98.1
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
== END ==
LOC: 3 N SLEEP 14:19
PROVIDERS: ATTEND Internal Medicine Critical Care Medicine
DX: G47.33 Obstructive sleep apnea (adult) (pediatric) (principal); G47.10 Hypersomnia, unspecified; E78.5 Hyperlipidemia, unspecified; I10 Essential (primary) hypertension; N40.0 Benign prostatic hyperplasia without lower urinary tract symptoms; Z87.730 Personal history of (corrected) cleft lip and palate; Z91.81 History of falling; Z87.442 Personal history of urinary calculi; Z98.890 Other specified postprocedural states; Z87.828 Personal history of other (healed) physical injury and trauma; Z98.84 Bariatric surgery status; Z79.899 Other long term (current) drug therapy
CPT/HCPCS: 99211

== ENCOUNTER → 2023-10-24 | Outpatient (CLI) | payer BC ==
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
== END ==
LOC: 3 N SLEEP 17:11
PROVIDERS: ATTEND Internal Medicine Critical Care Medicine
DX: G47.33 Obstructive sleep apnea (adult) (pediatric) (principal); G47.36 Sleep related hypoventilation in conditions classified elsewhere; M95.0 Acquired deformity of nose; Q37.9 Unspecified cleft palate with unilateral cleft lip; I10 Essential (primary) hypertension; E78.5 Hyperlipidemia, unspecified; N40.0 Benign prostatic hyperplasia without lower urinary tract symptoms; Z98.84 Bariatric surgery status; Z90.3 Acquired absence of stomach [part of]; Z68.41 Body mass index [BMI] 40.0-44.9, adult; Z79.899 Other long term (current) drug therapy

== ENCOUNTER 2023-11-13 19:42 | Outpatient (CLI) | payer BC ==
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
== END 2023-11-14 03:40 | disposition home or self-care (01) ==
LOC: 3 N SLEEP 19:42
PROVIDERS: ATTEND Internal Medicine Critical Care Medicine
DX: G47.33 Obstructive sleep apnea (adult) (pediatric) (principal); G47.10 Hypersomnia, unspecified; M95.0 Acquired deformity of nose; I10 Essential (primary) hypertension; N40.0 Benign prostatic hyperplasia without lower urinary tract symptoms; E78.5 Hyperlipidemia, unspecified; Q37.9 Unspecified cleft palate with unilateral cleft lip; G47.36 Sleep related hypoventilation in conditions classified elsewhere; Z90.81 Acquired absence of spleen; Z90.3 Acquired absence of stomach [part of]; Z98.84 Bariatric surgery status; Z98.890 Other specified postprocedural states; Z79.899 Other long term (current) drug therapy
CPT/HCPCS: 95811